=== PATIENT | female | born 1960 | race Caucasian/White ===

== ENCOUNTER → 2016-06-19 | Outpatient (CLI) | payer MEDICARE, MEDICAID ==
[~2016-06-19] MED LIST: ACET-77 PO; ALBU0.632 IH; ALBU17AE23; ALBU2.5V4; ALBU8.5H2 IH; ALPR1T; ALPR2TAB2; ALPR2TAB37 PO; ALPR2TAB6 PO; ARFO15VI3 IH; ARIP10TA17 PO; ARIP2TAB3 PO; BIOT25007 PO; BREX2TAB PO; BUDE10.2 INH; BUDE6HFA; BUDE6HFA IH; CEFD300C3 PO; CHOL10003; CHOL4PAC3 PO; CITA10TA70 PO; DCS100C PO; DESV100T PO; DIAZ-345 PO; DICL75TA2; DULO60CA6; ESCT10T; FENTANYL PATCH TD; FLC100T1 PO; GADOBUTROL 7.5 MMOL/7.5 ML (GADAVIST) VIAL IV ONE; GBPN100C PO; GFN600TCR PO; HDR4T PO; HORMONE REPLACEMENT; HYOS0.1216 PO; HYOS0.1234; IPRA3AMP IH; LEVO100T7 PO; LEVO750T6 PO; LINA290C PO; LOPE-134 PO; LVT.025T; LVT.05T; LVT.088T; LVT.1T PO; MELO7.5T46 PO; MENT71OI TOP; NAPR250T34 PO; NEFA100T PO; NITR-65 PO; OMEP40CA36 PO; ONDA8TAB12 PO; OXYB5TAB9 PO; OXYC10TA55 PO; OXYC10TA63 PO; OXYC10TA85 PO; OXYC15TA79 PO; OXYC30TA77 PO; OXYC40TA46 PO; OXYC60TA7 PO; PANT40TA; PHEN200T27 PO; PNT40TEC PO; POTA20TA8 PO; PRAZ1CAP2 PO; PREG150C PO; RIZA10TA23; RIZA10TA25 PO; RPN.25T; SULF-222; TOPI25TA2 PO; [UNRECOGNIZED DRUG - OTHER]
--- OUTSIDE RECORDS SUMMARY | 2016-06-19 10:15 | XMS REPORT | Continuity of Care Document ---
Author Author [facility] Organization [facility] Address Unknown Phone Unavailable Care Team Providers Care Macadam Raker Name Role Phone Becky Marks PCP Unavailable Source Comments Some departments are not documenting in the electronic medical record. If you do not see the information that you expected, contact Release of Information in the Health Information Management department at [phone] for further assistance in locating additional records.[facility] Active Allergies and Adverse Reactions Not on File Current Medications Not on file Active Problems Not on file Social History Tobacco Use Types Packs/Day Years Used Date Never Assessed Plan of Care Health Maintenance Due Date Last Done Comments Physical (Comprehensive) 01/29/1967 Exam Pertussis Vaccine 01/29/1971 Tetanus Vaccine 01/29/1977 Cervical Cancer Screening 01/29/1981 Breast Cancer Screening 2000 Colorectal Cancer 01/29/2010 Screening Influenza Vaccine 02/07/2016 Results from Last 3 Months Not on file
--- NOTE | 2016-06-19 14:31 | Diagnostic Imaging Report ---
PROCEDURE: MR imaging of the brain with and without contrast. TECHNIQUE: Multiplanar, multisequence MR imaging of the brain was performed with and without contrast. INDICATION: Facial numbness. CONTRAST: 7 mL of Gadavist is administered intravenously. FINDINGS: There is no diffusion restriction to suggest an acute infarct or other diffusion abnormality. The milan-white matter demonstrate minimal periventricular and deep white matter T2 hyperintense signal abnormalities without associated mass effect, significant demyelination, or postcontrast enhancement. This may relate to early findings of chronic microvascular ischemic changes. There is no hydrocephalus. The central vascular flow-voids appear preserved. The internal auditory canals and inner ear structures appear symmetric. No hydrocephalus. No extra-axial fluid collection or enhancing mass is seen. The pituitary gland is normal in size. No hypothalamic or pineal region mass. The orbits appear grossly unremarkable. There is mild mucosal thickening in the ethmoidal air cells and along the middle and inferior turbinates. IMPRESSION: No acute infarct. No enhancing mass. Dictated by: Dictated on workstation # [id number]
== END ==
LOC: RAD 10:10
DX: R20.0 Anesthesia of skin (principal)
CPT/HCPCS: 70553

== ENCOUNTER → 2016-09-18 | Outpatient (CLI) | payer MEDICARE, MEDICAID ==
[~2016-09-18] MED LIST changes: -GADOBUTROL 7.5 MMOL/7.5 ML (GADAVIST) VIAL IV ONE
--- NOTE | 2016-09-19 17:34 | Diagnostic Imaging Report ---
Bilateral screening mammogram. The current study was also evaluated with a Computer Aided Detection (CAD) system. INDICATION: Screening. No current complaints stated on the questionnaire. COMPARISON: 09/20/15. FINDINGS: The breasts are composed of heterogeneously dense parenchyma which may decrease mammographic sensitivity. Intramammary lymph node in the upper outer aspect of the left breast is again seen without change. Allowing for technique and positional differences, no suspicious change is seen. IMPRESSION: No significant change. ACR BI-RADS Category 2: Benign findings. Result letter will be mailed to the patient. Note: At least 10% of breast cancer is not imaged by mammography. Dictated by: Dictated on workstation # [id number]
== END ==
LOC: RAD 12:58
DX: Z12.31 Encounter for screening mammogram for malignant neoplasm of breast (principal)
CPT/HCPCS: 77067

== ENCOUNTER → 2016-11-26 | Outpatient (CLI) | payer MEDICARE, MEDICAID ==
--- NOTE | 2016-11-26 15:30 | Diagnostic Imaging Report ---
PROCEDURE: MRI lumbar spine. TECHNIQUE: Multiplanar, multisequence MRI of the lumbar spine was performed without contrast. INDICATION: Back pain and radiculopathy, M54.16. FINDINGS: There is susceptibility artifact related to anterior fusion hardware involving L5 and S1 vertebral bodies. There is suggestion of osseous bridging along the intervertebral space. There is satisfactory alignment at the posterior spinal line. The vertebral body heights are preserved. There is mild disc desiccation in the lower lumbar spine levels. There is marrow artifact around the hardware with otherwise no significant marrow signal abnormality in the lumbar spine. The cauda equina and conus medullaris appear grossly unremarkable. At T11/12, there is a mild left paracentral disc protrusion with no significant spinal canal or foraminal stenosis. T12/L1: No disc herniation. No spinal canal or foraminal stenosis. L1/2: There is no disc herniation, no spinal canal or foraminal stenosis. L2/3: There is no disc herniation, no spinal canal or foraminal stenosis. L3/4: No disc herniation. There is mild facet hypertrophy. No central canal, lateral recess or foraminal stenosis. L4/5: There is a mild disc bulge asymmetric to the left with an annular tear along the extraforaminal aspect on the left. There is moderate facet hypertrophy. No central canal stenosis. There is mild lateral recess stenosis seen bilaterally. The foramina demonstrate no significant stenosis. L5/S1: There is fusion changes at this level with no spinal canal or lateral recess stenosis. The foramina are patent. IMPRESSION: Post fusion changes at L5/S1 level. No significant spinal canal or foraminal stenosis at any level. Dictated by: Dictated on workstation # [id number]
--- NOTE | 2016-11-26 15:32 | Diagnostic Imaging Report ---
PROCEDURE: MR imaging cervical spine without contrast. TECHNIQUE: Multiplanar, multisequence MR imaging of the cervical spine was performed without contrast. INDICATION: Bilateral hand weakness. FINDINGS: There is straightening of the lordotic curvature. The vertebral body heights are preserved. There is anterior fusion hardware involving C7 and T1 levels. No obvious osseous fusion at the intervertebral disc at this level. The other discs demonstrate desiccation. There is mild disc height loss at C5/C6 and C6/C7 levels. There is marrow edema around endplates of C5/C6 and C6/C7 levels. There is otherwise no suspicious marrow signal abnormality. The foramen magnum and upper cervical canal is widely patent. The spinal cord has normal caliber, contour and signal. C2/C3: No spinal canal stenosis or foraminal narrowing is seen. No disc herniation. C3/C4: There is a spur disc complex associated with mild to moderate spinal canal stenosis reducing the AP dimension of the canal to 7.8 mm. There is minimal anterior flattening of the spinal cord at this level. No cord signal abnormality. The foramina demonstrate mild narrowing bilaterally, more on the left side secondary to uncovertebral and facet joint arthropathy. C4/C5: There is a disc spur complex with associated mild spinal canal stenosis reducing the AP dimension of the canal to 9 mm. No cord signal abnormality. The foramina demonstrate mild stenosis only on the right side. C5/C6: There is a disc spur complex associated with moderate spinal canal stenosis reducing the AP dimension of the canal to 7.5 mm. No cord compression or cord signal abnormality. The foramina demonstrate bilateral stenosis, moderate to severe on the right and moderate on the left. C6/C7: There is a disc spur complex reducing the AP dimension of the canal to 8.5 mm, mild to moderate stenosis. No cord compression. The foramina demonstrate mild to moderate stenosis bilaterally. C7/T1: There is prior fusion surgery performed at this level with no definite osseous bridging seen across the disc space. There are no remaining osteophytes or disc material. No spinal canal or foraminal stenosis. IMPRESSION: There is multilevel spinal canal and foraminal stenosis as described. Dictated by: Dictated on workstation # [id number]
== END ==
LOC: RAD 10:11
DX: M54.16 Radiculopathy, lumbar region (principal)
CPT/HCPCS: 72141; 72148

== ENCOUNTER → 2017-09-14 | Outpatient (CLI) | payer MEDICARE, MEDICAID ==
--- NOTE | 2017-09-14 10:58 | Diagnostic Imaging Report ---
INDICATION: Constipation and lower abdominal pain. TIME OF EXAM: 11:01 AM FINDINGS: There are surgical clips in the right abdomen. There is an IVC filter in place. Bowel gas pattern is nonobstructive. There is moderate stool in the colon, suggestive of constipation. Small bowel loops are nondilated. No free air is seen. There are postop changes in the lower lumbar spine. IMPRESSION: Constipation. No other significant abnormality is seen. Dictated by: Dictated on workstation # [id number]
== END ==
LOC: RAD 10:30
DX: K59.00 Constipation, unspecified (principal)
CPT/HCPCS: 74018

== ENCOUNTER → 2017-09-15 | Outpatient (CLI) | payer MEDICARE, MEDICAID ==
--- NOTE | 2017-09-15 16:26 | Diagnostic Imaging Report ---
INDICATION: Shortness of breath. COMPARISON: 04/17/2017 FINDINGS: Two views of the chest are obtained. Heart size and pulmonary vessels appear unremarkable. There is no pneumothorax, mediastinal widening or pleural fluid. Chronic findings of COPD are again demonstrated. Some scarring in the right upper lobe is stable. The lungs are otherwise clear. No new abnormality is seen. The osseous structures appear unremarkable. IMPRESSION: Stable chronic findings of COPD and right upper lobe scarring. No new or acute abnormality is seen when compared to the prior study. Dictated by: Dictated on workstation # [id number]
== END ==
LOC: RAD 15:44
DX: J98.4 Other disorders of lung (principal); J44.9 Chronic obstructive pulmonary disease, unspecified
CPT/HCPCS: 71046

== ENCOUNTER → 2017-09-21 | Outpatient (CLI) | payer MEDICARE, MEDICAID ==
[~2017-09-21] MED LIST changes: +ALPR2TAB2 PO; +BUDE10.2 IH; -IPRA3AMP IH; +IPRA3AMP31 IH; +LEVO88TA54 PO; +OXYC-202 PO; +PRAM1TAB2 PO; +RT-ALBUINH IH
--- NOTE | 2017-09-21 16:17 | Diagnostic Imaging Report ---
INDICATION: Routine screening. COMPARISON: 09/18/2016. TECHNIQUE: Screening digital mammography was performed bilaterally with a Computer Aided Detection (CAD) system. 3D tomographic images were obtained and reviewed. FINDINGS: Both breasts appear heterogeneously dense, limiting the sensitivity of mammography. There are benign calcifications on the left. No mass or malignant appearing microcalcifications are seen. The axillae are unremarkable. IMPRESSION: No mammographic features suspicious for malignancy are identified. ACR BI-RADS Category 2: Benign findings. Result letter will be mailed to the patient. Note: At least 10% of breast cancer is not imaged by mammography. Dictated by: Dictated on workstation # [id number]
== END ==
LOC: RAD 14:42
DX: Z12.31 Encounter for screening mammogram for malignant neoplasm of breast (principal)
CPT/HCPCS: 77067

== ENCOUNTER 2017-10-12 10:10 | Outpatient (CLI) | payer MEDICARE, MEDICAID ==
[~2017-10-12] VITALS: Ht 161.3 cm; Wt 38.1 kg
[~2017-10-12 10:10] MED LIST changes: -ALPR2TAB2 PO; -BUDE10.2 IH; -CATHETER FLUSH 10 ML SYR IV PRN; -IOHEXOL 350 MG/ML 100 ML (OMNIPAQUE 350) VIAL IV ONE; -LEVO88TA54 PO; -NS 100 ML (IVPB) BAG IV ONE; -OXYC-202 PO; -PRAM1TAB2 PO; -RT-ALBUINH IH
[2017-10-12] MEDS ORDERED: LEVO88TA54 PO (10:50)
[2017-10-12] MEDS ORDERED: RT-ALBUINH IH (10:50)
[2017-10-12] MEDS ORDERED: PRAM1TAB2 PO (12:08)
[2017-10-12] MEDS ORDERED: ALPR2TAB2 PO (12:08)
[2017-10-12] MEDS ORDERED: OXYC-202 PO (12:08)
[2017-10-12] MEDS ORDERED: BUDE10.2 IH (12:08)
== END 2017-10-12 12:09 ==
LOC: PREOP 10:10
PROVIDERS: ATTEND Surgery
DX: Z01.818 Encounter for other preprocedural examination (principal); R63.4 Abnormal weight loss; R19.5 Other fecal abnormalities; Z80.0 Family history of malignant neoplasm of digestive organs

== ENCOUNTER → 2017-10-12 | Outpatient (CLI) | payer MEDICARE, MEDICAID ==
[~2017-10-12] MED LIST changes: +CATHETER FLUSH 10 ML SYR IV PRN; +IOHEXOL 350 MG/ML 100 ML (OMNIPAQUE 350) VIAL IV ONE; +IPRA3AMP IH; -IPRA3AMP31 IH; +NS 100 ML (IVPB) BAG IV ONE
--- NOTE | 2017-10-12 15:31 | Diagnostic Imaging Report ---
PROCEDURE: CT abdomen and pelvis with and without contrast. TECHNIQUE: Precontrast acquisitions were acquired through the abdomen and pelvis. Multiple contiguous axial images were obtained through the abdomen and pelvis after the administration of intravenous contrast. DATE: October 12, 2017. COMPARISON: [facility] 09/14/2017. CT abdomen and pelvis with contrast 01/21/2016. CT abdomen and pelvis 09/14/2014. INDICATION: 57-year-old female, weight loss. Upper mid abdominal pain. FINDINGS: The visualized portions of the lung bases are clear. The heart is not enlarged. There is no identified pericardial effusion. The liver is unremarkable in size and contour. There is a low-attenuation lesion in the left lobe of the liver on axial image 17 which measures 0.9 in size with internal attenuation of 20 Hounsfield units. The lesion is unchanged in size since at least 09/14/2014 compatible with benign etiology. There is a low-attenuation lesion in the left lobe of the liver on axial image 23 measuring up to 1.6 cm in size which is also unchanged dating back to 09/14/2014 compatible with benign etiology. There is a 3 mm low-attenuation lesion in the right lobe of the liver on axial image 40 with delayed images which is too small to characterize. This is unchanged since comparison exam. There is mild intrahepatic bile duct dilation which is unchanged. The liver appears somewhat heterogeneous in attenuation. There is limited evaluation of the portal vasculature relating to timing of the contrast bolus. The patient is status post cholecystectomy. The common bile duct measures 6 mm in diameter which is unchanged. The main pancreatic duct is not abnormally dilated. Unremarkable appearance of the pancreatic parenchyma. There is a small amount of splenic tissue. The adrenal glands are unremarkable. There is a low-attenuation left renal mass on axial image 41 which measures 2.7 cm in size with internal attenuation of 10 Hounsfield units compatible with benign cysts. The urinary collecting systems are not distended. There is no identified renal or ureteral stone. The urinary bladder is collapsed and not well evaluated. There is prominent abnormal mucosal enhancement and wall thickening extending from the level of the rectum through the sigmoid colon. There is gas on axial image 61 at the level of the sigmoid colon which does not appear to be within the lumen of bowel and may relate to pneumatosis. There is no identified portal venous gas. There is no identified free intraperitoneal air at a separate location. There is no additional prominent bowel wall thickening. There is no identified well-demarcated drainable fluid collection. There is no sizable volume free pelvic fluid. There is an inferior vena cava filter. The celiac axis, superior mesenteric artery, and bilateral renal arteries appear widely patent. The inferior mesenteric artery is patent. There is no identified abnormally enlarged lymph node within the abdomen or pelvis which meets CT size criteria for adenopathy. There are chronic appearing fracture deformities of the left inferior and superior pubic rami. There is a chronic bone defect of the right iliac bone most likely relating to a bone graft harvest site. There is no identified acute bony abnormality. There is spinal hardware at L5-S1. IMPRESSION: CT ABDOMEN AND PELVIS. 1. Prominent abnormal mucosal enhancement and wall thickening extending from the level of the rectum through the length of the sigmoid colon. This is new since comparison exam. Particularly given the long segment involvement, nonspecific colitis such as infectious, inflammatory, or ischemic etiologies considered. There is no identified narrowing of the celiac axis, superior mesenteric artery, or inferior mesenteric artery. There is abnormal extraluminal gas at the level of the sigmoid colon likely relating to pneumatosis. This increases concern for intestinal ischemia. 2. Unchanged low-attenuation liver lesions compatible with benign etiology. Dr. Sher was paged at 1520 hrs. on October 12, 2017. Repeat call made at 1558 hours on October 12, 2017. Findings were relayed to the nurse practioner (Marques) taking care of the patient at 1623 hours on October 12, 2017. Dictated by: Dictated on workstation # [id number]
== END ==
LOC: RAD 13:49
DX: K63.89 Other specified diseases of intestine (principal); R63.4 Abnormal weight loss
CPT/HCPCS: 74178

== ENCOUNTER 2017-10-13 10:59 | Day surgery (SDC) | payer MEDICARE, MEDICAID ==
[~2017-10-13] VITALS: Ht 161.3 cm; Wt 38.1 kg
[~2017-10-13 10:59] MED LIST changes: +ALPR2TAB2 PO; +BUDE10.2 IH; +LEVO88TA54 PO; +OXYC-202 PO; +PRAM1TAB2 PO; +RT-ALBUINH IH
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
--- OUTSIDE RECORDS SUMMARY | 2017-10-13 11:03 | XMS REPORT | Clinical Summary ---
Author Author [facility] Organization [facility] Address Unknown Phone Unavailable Care Team Providers Care Energy Consultant Name Role Phone Matt Marks MD PCP Unavailable Source Comments Some departments are not documenting in the electronic medical record. If you do not see the information that you expected, contact Release of Information in the Health Information Management department at [phone] for further assistance in locating additional records.[facility] Allergies Not on File Current Medications Not on file Active Problems Not on file Social History Tobacco Use Types Packs/Day Years Used Date Never Assessed Sex Assigned at Date Recorded Not on file Last Filed Vital Signs Not on file Plan of Treatment Health Maintenance Due Date Last Done Comments HEPATITIS C SCREENING 1960 PHYSICAL (COMPREHENSIVE) 01/29/1967 EXAM PERTUSSIS VACCINE 01/29/1971 HIV SCREENING 01/29/1975 TETANUS VACCINE 01/29/1977 CERVICAL CANCER SCREENING 01/29/1990 BREAST CANCER SCREENING 2000 COLORECTAL CANCER 01/29/2010 SCREENING INFLUENZA VACCINE 03/08/2018 Results Not on filefrom Last 3 Months
--- OUTSIDE RECORDS SUMMARY | 2017-10-13 11:03 | XMS REPORT ---
Author Author MARKO GARCIA [facility] Address Unknown Care Team Providers Care Linotype Machinist Apprentice Name Role Phone MARKO GARCIA Unavailable PROBLEMS Type Condition ICD9-CM Code MAW21-TV Code Onset Dates Condition Status SNOMED Code Problem Unspecified hypothyroidism 244.9 Active 34093465 Problem Other chronic pain 338.29 Active 59699166 Assessment Caries K02.9 Apr, Active 04752722 Problem Anxiety state, unspecified 300.00 Active 850247800 Problem Major depressive disorder, single episode, unspecified 296.20 Active 37867321 ALLERGIES Substance Reaction Event Type Date Status Lyrica Unknown Drug Allergy Apr, Active Elmiron Unknown Drug Allergy Apr, Active Tramadol Unknown Drug Allergy Apr, Active Morphine Unknown Drug Allergy Apr, Active Tape Unknown Non Drug Allergy Apr, Active SOCIAL HISTORY No smoking Hx information available PLAN OF CARE VITAL SIGNS MEDICATIONS Medication Instructions Dosage Frequency Start Date End Date Duration Status Pristiq 100 mg 1 tablet by Oral route 1 time per day for 30 day(s) Aug, Active Alprazolam 2 mg 1 tablet by Oral route 3 times per day PRN Aug, Active oxycodone 15 mg take 1-2 tablet by Oral route 3 times per day PRN Aug, Active ProAir HFA 90 mcg/actuation inhale 2 puffs by Inhalation route 4 times per day as needed PRN shortness of breath/cough Aug, Active levothyroxine 100 mcg 1 tablet by Oral route 1 time per day Will need labs before further refills Aug, Active Ipratropium [place] 0.02 % 2.5 mL by Inhalation route 4 daily PRN wheezing or cough Aug, Active Symbicort 160-4.5 mcg/actuation inhale 2 puffs by inhalation route 2 times per day in the morning and evening Aug, Active conjugated estrogens 0.625 mg/gram 1 g by Vaginal route 3 times per week Aug, Active RESULTS No Results PROCEDURES Procedure Date Ordered Related Diagnosis Body Site EXTRAC ERUPTED TOOTH/EXPOSED ROOT Apr 10, 2016 EXTRAC ERUPTED TOOTH/EXPOSED ROOT Apr 10, 2016 EXTRAC ERUPTED TOOTH/EXPOSED ROOT Apr 10, 2016 EXTRAC ERUPTED TOOTH/EXPOSED ROOT Apr 10, 2016 SURG REMOVAL ERUPTED TOOTH Apr 10, 2016 EXTRAC ERUPTED TOOTH/EXPOSED ROOT Apr 10, 2016 IMMUNIZATIONS No Known Immunizations
--- OUTSIDE RECORDS SUMMARY | 2017-10-13 11:03 | XMS REPORT ---
Author Author MARKO GARCIA [facility] Address Unknown Care Team Providers Care Barrel Filler Head Name Role Phone MARKO GARCIA Unavailable PROBLEMS Type Condition ICD9-CM Code [id number] Code Onset Dates Condition Status SNOMED Code Problem Major depressive disorder, single episode, unspecified 296.20 Active 77890793 Problem Unspecified hypothyroidism 244.9 Active 71913067 Problem Anxiety state, unspecified 300.00 Active 054629205 Problem Other chronic pain 338.29 Active 96213683 ALLERGIES Substance Reaction Event Type Date Status Lyrica Unknown Drug Allergy Sep, Active Elmiron Unknown Drug Allergy Sep, Active Tramadol Unknown Drug Allergy Sep, Active Morphine Unknown Drug Allergy Sep, Active Tape Unknown Non Drug Allergy Sep, Active SOCIAL HISTORY Never Assessed PLAN OF CARE Activity Details Follow Up 3 Weeks Reason:Try-in VITAL SIGNS Height 63.5 in 2016-09-17 Blood pressure systolic 97 mmHg 2016-09-17 Blood pressure diastolic 66 mmHg 2016-09-17 MEDICATIONS No Known Medications RESULTS No Results PROCEDURES Procedure Date Ordered Result Body Site Dental no charge September 17, 2016 IMMUNIZATIONS No Known Immunizations MEDICAL (GENERAL) HISTORY Type Description Date Medical [...]
--- OUTSIDE RECORDS SUMMARY | 2017-10-13 11:03 | XMS REPORT ---
Author Author MARY SHEETS [facility] [place] eClinicalWorks Address Unknown Phone Unavailable Care Team Providers Care Malted Milk Masher Name Role Phone MARY SHEETS CP Unavailable Allergies, Adverse Reactions, Alerts Substance Reaction Event Type Lyrica Info Not Available Drug Allergy Elmiron Info Not Available Drug Allergy Tramadol Info Not Available Drug Allergy Morphine Info Not Available Drug Allergy Tape Info Not Available Non Drug Allergy Problems Problem Type Condition Code Onset Dates Condition Status Problem Other chronic pain 338.29 Active Problem Anxiety state, unspecified 300.00 Active Problem Unspecified hypothyroidism 244.9 Active Problem Major depressive disorder, single episode, unspecified 296.20 Active Assessment Dental examination Z01.20 Active Medications No Known Medications Procedures Procedure Coding System Code Date PANORAMIC FILM SEE ALSO CODE 68339 CPT-4 D0330 December 24, 2015 LTD ORAL EVALUATION - PROBLEM FOCUS CPT-4 D0140 December 24, 2015 Vital Signs Date/Time: December 24, 2015 Blood Pressure Diastolic 93 mmHg Blood Pressure Systolic 113 mmHg Height 63.5 in Results No Known Results Summary Purpose eClinicalWorks Submission
--- OUTSIDE RECORDS SUMMARY | 2017-10-13 11:05 | XMS REPORT ---
Author Author MARKO GARCIA [facility] Address Unknown Care Team Providers Care Senior Instrumentation Engineer Name Role Phone MARKO GARCIA Unavailable PROBLEMS Type Condition ICD9-CM Code [id number] Code Onset Dates Condition Status SNOMED Code Problem Major depressive disorder, single episode, unspecified 296.20 Active 32003401 Problem Unspecified hypothyroidism 244.9 Active 94142246 Problem Anxiety state, unspecified 300.00 Active 215331936 Problem Other chronic pain 338.29 Active 31091084 ALLERGIES Substance Reaction Event Type Date Status Lyrica Unknown Drug Allergy Aug, Active Elmiron Unknown Drug Allergy Aug, Active Tramadol Unknown Drug Allergy Aug, Active Morphine Unknown Drug Allergy Aug, Active Tape Unknown Non Drug Allergy Aug, Active SOCIAL HISTORY Never Assessed PLAN OF CARE Activity Details Follow Up 3-4 Weeks Reason:wax rims VITAL SIGNS Blood pressure systolic 85 mmHg 2016-08-06 Blood pressure diastolic 56 mmHg 2016-08-06 MEDICATIONS Medication Instructions Dosage Frequency Start Date End Date Duration Status levothyroxine 100 mcg 1 tablet by Oral route 1 time per day Will need labs before further refills Aug, Active Alprazolam 2 mg 1 tablet by Oral route 3 times per day PRN Aug, Active conjugated estrogens 0.625 mg/gram 1 g by Vaginal route 3 times per week Aug, Active ProAir HFA 90 mcg/actuation inhale 2 puffs by Inhalation route 4 times per day as needed PRN shortness of breath/cough Aug, Active Ipratropium [place] 0.02 % 2.5 mL by Inhalation route 4 daily PRN wheezing or cough Aug, Active Symbicort 160-4.5 mcg/actuation inhale 2 puffs by inhalation route 2 times per day in the morning and evening Aug, Active oxycodone 15 mg take 1-2 tablet by Oral route 3 times per day PRN Aug, Active Percocet Active Lyrica Active RESULTS No Results PROCEDURES Procedure Date Ordered Result Body Site EXTRAC ERUPTED TOOTH/EXPOSED ROOT August 06, 2016 IMMUNIZATIONS No Known Immunizations MEDICAL (GENERAL) [...]
--- OUTSIDE RECORDS SUMMARY | 2017-10-13 11:05 | XMS REPORT ---
Author Author MARKO GARCIA [facility] Address Unknown Care Team Providers Care Stone Circular Sawyer Name Role Phone MARKO GARCIA Unavailable PROBLEMS Type Condition ICD9-CM Code [id number] Code Onset Dates Condition Status SNOMED Code Problem Major depressive disorder, single episode, unspecified 296.20 Active 06529338 Problem Unspecified hypothyroidism 244.9 Active 09228237 Problem Anxiety state, unspecified 300.00 Active 424976439 Problem Other chronic pain 338.29 Active 70014802 ALLERGIES Substance Reaction Event Type Date Status Lyrica Unknown Drug Allergy Jun, Active Elmiron Unknown Drug Allergy Jun, Active Tramadol Unknown Drug Allergy Jun, Active Morphine Unknown Drug Allergy Jun, Active Tape Unknown Non Drug Allergy Jun, Active SOCIAL HISTORY No smoking Hx information available PLAN OF CARE Activity Details Follow Up 3 Weeks Reason:te/custom tray/try in VITAL SIGNS Height 63.5 in 2016-07-04 Blood pressure systolic 87 mmHg 2016-07-04 Blood pressure diastolic 51 mmHg 2016-07-04 MEDICATIONS Medication Instructions Dosage Frequency Start Date End Date Duration Status Ipratropium [place] 0.02 % 2.5 mL by Inhalation route 4 daily PRN wheezing or cough Aug, Active levothyroxine 100 mcg 1 tablet [...] needed PRN shortness of breath/cough Aug, Active Symbicort 160-4.5 mcg/actuation inhale 2 puffs by inhalation route 2 times per day in the morning and evening Aug, Active oxycodone 15 mg take 1-2 tablet by Oral route 3 times per day PRN Aug, Active RESULTS No Results PROCEDURES Procedure Date Ordered Related Diagnosis Body Site COMPLETE DENTURE - MAXILLARY Jul 04, 2016 Billing Notes on claim Jul 04, 2016 IMMUNIZATIONS No Known Immunizations
--- OUTSIDE RECORDS SUMMARY | 2017-10-13 11:05 | XMS REPORT ---
Author Author ANGELERINMARKO [facility] Address Unknown Care Team Providers Care Deputy Sheriff/Investigator Name Role Phone MARKO GARCIA Unavailable PROBLEMS Type Condition ICD9-CM Code [id number] Code Onset Dates Condition Status SNOMED Code Problem Unspecified hypothyroidism 244.9 Active 94486621 Problem Other chronic pain 338.29 Active 96234139 Assessment Dental examination Z01.20 Apr, Active 086482655 Problem Anxiety state, unspecified 300.00 Active 408636342 Problem Major depressive disorder, single episode, unspecified 296.20 Active 69997517 ALLERGIES Substance Reaction Event Type Date Status [...] per day for 30 day(s) Aug, Active oxycodone 15 mg take 1-2 tablet by Oral route 3 times per day PRN Aug, Active Alprazolam 2 mg 1 tablet by Oral route 3 times per day PRN Aug, Active levothyroxine 100 mcg 1 tablet by Oral route 1 time per day Will need labs before further refills Aug, Active ProAir HFA 90 mcg/actuation inhale 2 puffs by Inhalation route 4 times per day as needed PRN shortness of breath/cough Aug, Active Symbicort 160-4.5 mcg/actuation inhale 2 puffs by inhalation route 2 times per day in the morning and evening Aug, Active conjugated estrogens 0.625 mg/gram 1 g by Vaginal route 3 times per week Aug, Active Ipratropium [place] 0.02 % 2.5 mL by Inhalation route 4 daily PRN wheezing or cough Aug, Active RESULTS No Results PROCEDURES Procedure Date Ordered Related Diagnosis Body Site Dental no charge Apr 17, 2016 IMMUNIZATIONS No Known Immunizations
--- OUTSIDE RECORDS SUMMARY | 2017-10-13 11:05 | XMS REPORT ---
Author Author MARKO GARCIA [facility] Address Unknown Care Team Providers Care Bone Char Kiln Tender Name Role Phone MARKO GARCIA Unavailable PROBLEMS Type Condition ICD9-CM Code [id number] Code Onset Dates Condition Status SNOMED Code Problem Major depressive disorder, single episode, unspecified 296.20 Active 38273989 Problem Unspecified hypothyroidism 244.9 Active 26149766 Problem Anxiety state, unspecified 300.00 Active 938515554 Problem Other chronic pain 338.29 Active 47185866 ALLERGIES Substance Reaction Event Type Date Status Lyrica Unknown Drug Allergy October, Active Elmiron Unknown Drug Allergy October, Active Tramadol Unknown Drug Allergy October, Active Morphine Unknown Drug Allergy October, Active Tape Unknown Non Drug Allergy October, Active SOCIAL HISTORY Never Assessed PLAN OF CARE Activity Details Follow Up 3 Weeks Reason:Upper denture seat VITAL SIGNS Height 63.5 in 2016-10-21 Blood pressure systolic 109 mmHg 2016-10-21 Blood pressure diastolic 73 mmHg 2016-10-21 MEDICATIONS No Known Medications RESULTS No Results PROCEDURES Procedure Date Ordered Result Body Site Dental no charge October 21, 2016 IMMUNIZATIONS No Known Immunizations MEDICAL (GENERAL) [...]
--- OUTSIDE RECORDS SUMMARY | 2017-10-13 11:05 | XMS REPORT ---
Author Author MARKO GARCIA [facility] Address Unknown Care Team Providers Care Hoop Cutter Name Role Phone MARKO GARCIA Unavailable PROBLEMS Type Condition ICD9-CM Code [id number] Code Onset Dates Condition Status SNOMED Code Problem Major depressive disorder, single episode, unspecified 296.20 Active 75979242 Problem Unspecified hypothyroidism 244.9 Active 31113851 Problem Anxiety state, unspecified 300.00 Active 334013645 Problem Other chronic pain 338.29 Active 54646266 ALLERGIES No Known Allergies SOCIAL HISTORY No smoking Hx information available PLAN OF CARE VITAL SIGNS MEDICATIONS No Known Medications RESULTS No Results PROCEDURES Procedure Date Ordered Related Diagnosis Body Site Dental no charge Jul 11, 2016 IMMUNIZATIONS No Known Immunizations
--- OUTSIDE RECORDS SUMMARY | 2017-10-13 11:06 | XMS REPORT | Continuity of Care Document ---
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 FOR MALIGNANT NE 09/22/2017 EDGARD CROOK MD Ot Z12.31 ENCNTR SCREEN MAMMOGRAM FOR MALIGNANT NE 09/22/2017 EDGARD CROOK MD Ot Z12.31 ENCNTR SCREEN MAMMOGRAM FOR MALIGNANT NE 10/06/2017 EDGARD CROOK MD Ot K59.00 CONSTIPATION, UNSPECIFIED 10/06/2017 EDGARD CROOK MD Ot J44.9 CHRONIC OBSTRUCTIVE PULMONARY DISEASE, U 10/06/2017 EDGARD CROOK MD Ot J98.4 OTHER DISORDERS OF LUNG Procedures Code Description Performed By Performed On 96.71 CONTINUOUS INVASIVE MECHANICAL VENTILATI 07/28/2011 71298 XRAY CERVICAL SPINE, 2 OR 3 VIEWS 08/16/2014 20271 XRAY THORACIC SPINE 3 VIEWS 08/16/2014 63369 XRAY LUMBAR SPINE 2 OR 3 VIEWS 08/16/2014 PHYSICAL PHYSICAL THERAPY, VIA PERLA 09/20/2014 [id number] RESPIRATORY VENTILATION, LESS THAN 24 CO 09/22/2015 Results Test Result Range Comprehensive metabolic panel - 01/21/16 09:11 Serum or plasma sodium measurement (moles/volume) 139 mmol/L 135-145 Serum or plasma potassium measurement (moles/volume) 5.3 mmol/L 3.6-5.0 Serum or plasma chloride measurement (moles/volume) 100 mmol/L 98-107 Carbon dioxide 32 mmol/L 21-32 Serum or plasma anion gap determination (moles/volume) 7 mmol/L 5-14 Serum or plasma urea nitrogen measurement (mass/volume) 26 mg/dL 7-18 Serum or plasma creatinine measurement (mass/volume) 0.78 mg/dL 0.60-1.30 Serum or plasma urea nitrogen/creatinine mass ratio 33 NRG Serum or plasma creatinine measurement with calculation of estimated glomerular filtration rate > NRG Serum or plasma glucose measurement (mass/volume) 104 mg/dL 70-105 Serum or plasma calcium measurement (mass/volume) 9.7 mg/dL 8.5-10.1 Serum or plasma total bilirubin measurement (mass/volume) 0.2 mg/dL 0.1-1.0 Serum or plasma alkaline phosphatase measurement (enzymatic activity/volume) 101 U/L 40-136 Serum or plasma aspartate aminotransferase measurement (enzymatic activity/ volume) 25 U/L 5-34 Serum or plasma alanine aminotransferase measurement (enzymatic activity/volume ) 20 U/L 0-55 Serum or plasma protein measurement (mass/volume) 7.8 g/dL 6.4-8.2 Serum or plasma albumin measurement (mass/volume) 4.2 g/dL 3.2-4.5 Encounters ACCT No. Visit Date/Time Discharge Status Pt. Type Provider Facility Loc./Unit Complaint [id number] 12/30/2012 08:50:00 12/30/2012 15:10:00 DIS Outpatient Jaswinder Bradshaw MD [facility] on Juan J7E [id number] 01/17/2016 18:06:41 01/17/2016 18:06:41 Outpatient [id number] 09/21/2017 14:42:00 09/21/2017 23:59:59 CLS Outpatient EDGARD CROOK MD [facility] RAD SCREENING MAMMO [id number] 09/15/2017 15:44:00 09/15/2017 23:59:59 CLS Outpatient EDGARD CROOK MD [facility] RAD R06.02 [id number] 09/14/2017 10:30:00 09/14/2017 23:59:59 CLS Outpatient EDGARD CROOK MD [facility] RAD R10.32 [id number] 04/17/2017 10:30:00 04/17/2017 23:59:59 CLS Outpatient YUNG ONOFRE APRN [facility] RAD R05 [id number] 11/26/2016 10:11:00 11/26/2016 23:59:59 CLS Outpatient EDGARD CROOK MD [facility] RAD RADICULOPATHY M54.16 [id number] 09/18/2016 12:58:00 09/18/2016 23:59:59 CLS Outpatient EDGARD CROOK MD [facility] RAD SCREENING [id number] 06/19/2016 10:10:00 06/19/2016 23:59:59 CLS Outpatient EDGARD CROOK MD [facility] RAD NUMBNESS OF FACE [id number] 05/12/2016 11:37:00 05/12/2016 14:52:00 DIS Emergency SHREYA BHATTI [facility] ER HEAD NUMBNESS [id number] 01/21/2016 08:44:00 01/21/2016 23:59:59 CLS Outpatient EDGARD CROOK MD [facility] RAD ABDOMINAL PAIN [id number] 01/07/2016 07:01:00 01/07/2016 09:05:00 DIS Outpatient JOAQUIN GANNON MD [facility] SDC BLOOD IN STOOL [id number] 01/01/2016 05:39:00 01/01/2016 12:19:00 DIS Outpatient JOAQUIN GANNON MD [facility] PREOP BLOOB IN STOOL [id number] 09/22/2015 17:28:00 09/28/2015 09:50:00 DIS Inpatient BEREKET MONROY DO [facility] 4TH DEC LOC HYPOXIA RESP FAILURE,OROPHARYNGEAL DYSPHAG [id number] 09/26/2015 08:00:00 09/26/2015 08:00:00 CAN Preadmit JOAQUIN GANNON MD [facility] PREOP SCREENING [id number] 09/20/2015 14:46:00 09/20/2015 23:59:59 CLS Outpatient EDGARD CROOK MD [facility] RAD SCREENING [id number] 07/03/2015 09:42:00 07/03/2015 23:59:59 CLS Outpatient ARMAAN ESPAÑA, EDGARD Pena [facility] RAD CERVICAL SYNDROME [id number] 03/12/2015 13:17:00 03/12/2015 23:59:59 CLS Outpatient MARY HERNANDEZ MD [facility] RAD CERVICALGIA [id number] 12/15/2014 06:00:00 12/15/2014 09:45:00 DIS Outpatient ELIF DWYER MD [facility] SDC INTERSTITIAL CYSTITIS [id number] 12/12/2014 10:00:00 12/12/2014 23:59:59 CLS Outpatient ELIF DWYER MD [facility] PREOP INTERSTITIAL CYSTITIS [id number] 12/06/2014 15:12:00 12/06/2014 16:13:00 DIS Outpatient BRIA DAVID MD [facility] REHAB FREQUENT FALLS, LOW BACK PAIN [id number] 09/14/2014 14:51:00 09/14/2014 17:11:00 DIS Emergency JASWINDER TADEO MD [facility] ER DETOX/PAIN ALL OVER [id number] 09/12/2014 17:16:00 09/12/2014 23:59:59 CLS Outpatient BRIA DAVID MD [facility] RAD CHRONIC BACK PAIN [id number] 03/09/2014 10:04:00 03/09/2014 23:59:59 CLS Outpatient RITIKA SPRING MD [facility] RAD PELVIC PAIN [id number] 02/15/2013 09:35:00 02/15/2013 23:59:59 CLS Outpatient KEVAN GARCÍA APRN [facility] RAD KIDNEY STONE [id number] 02/15/2013 09:50:00 02/15/2013 12:18:00 DIS Emergency KEVAN GARCÍA APRN [facility] ER KIDNEY STONE [id number] 12/23/2012 08:58:00 12/23/2012 23:59:59 CLS Outpatient VERO FUNK [facility] RAD SCREENING [id number] 10/12/2017 14:15:00 PEN Marisol CROOK MD, EDGARD Pena [facility] RAD ABN WEIGHT LOSS [id number] 09/12/2014 17:16:00 Document Registration [id number] 09/12/2014 17:16:00 Document Registration [id number] 09/12/2014 17:16:00 Document Registration [id number] 09/12/2014 17:16:00 Document Registration [id number] 09/12/2014 17:16:00 Document Registration [id number] 09/12/2014 17:16:00 Document Registration [id number] 09/12/2014 17:16:00 Document Registration [id number] 07/28/2011 17:33:00 Document Registration [id number] 08/27/2010 10:21:00 Document Registration [id number] 01/21/2010 14:22:00 Document Registration [id number] 11/29/2009 09:44:00 Document Registration [id number] 11/01/2009 14:16:00 Document Registration [id number] 09/03/2009 08:00:00 Document Registration [id number] 08/03/2009 07:48:00 Document Registration [id number] 07/05/2009 14:16:00 Document Registration [id number] 06/22/2009 11:47:00 Document Registration [id number] 09/20/2014 13:20:00 09/20/2014 23:59:59 CLS Outpatient BRIA DAVID MD [id number] 08/16/2014 09:22:00 08/16/2014 23:59:59 CLS Outpatient BRIA DAVID MD [id number] 03/13/2015 05:20:22 ACT Document Registration
[2017-10-13 11:20] VITALS: BP 117/90
[2017-10-13] MEDS ORDERED: NS IV 500 ML 500 ML IV PRN (11:35)
[2017-10-13] MEDS ORDERED: HURRICAINE EXT TUBE (BENZOCAINE) XX PRN (11:45)
[2017-10-13] MEDS ORDERED: NS IV 500 ML 500 ML ONE (11:45)
[2017-10-13] MEDS ORDERED: fentaNYL INJECTION 100 MCG/2 ML AMP ONE (12:31)
[2017-10-13] MEDS ORDERED: MIDAZOLAM 2 MG/2 ML (VERSED) VIAL ONE ×4 (12:31)
[2017-10-13] MEDS ORDERED: HURRICAINE EXT TUBE (BENZOCAINE) ONE (12:31)
[2017-10-13] MEDS: fentaNYL INJECTION 100 MCG/2 ML AMP IVP PRN ×2 (13:58→14:15)
[2017-10-13] MEDS: MIDAZOLAM 2 MG/2 ML (VERSED) VIAL IVP PRN ×4 (14:00→14:14)
--- NOTE | 2017-10-13 14:00 | History & Physicial ---
History of Present Illness History of Present Illness Reason for visit/HPI Weight loss >20 lbs over the past several months. Additionally, has been having abdominal pain during this time. Patient denies hematochezia. Patient denies loss of appetite and states she has been eating more but continues to lose weight. Date of Admission 10/13/2017 Date Seen by Provider: October 13, 2017 Time Seen by Provider: 13:54 I consulted on this patient on 10/13/17 13:54 Attending Physician Joaquin Clifton MD Admitting Physician Brandin Sher MD Consult Allergies and Home Medications Allergies Coded Allergies: meperidine (Unverified Allergy, Severe, ANAPHYLAXIS, 09/26/15) pregabalin (Unverified Allergy, Mild, 09/03/09) morphine (Verified Allergy, Unknown, 03/09/14) pentosan polysulfate sodium (Verified Allergy, Unknown, 03/09/14) tramadol (Unverified Allergy, Unknown, RASH, 12/12/14) Uncoded Allergies: TAPE (Allergy, Unknown, 03/09/14) Home Medications Albuterol Sulfate 1 Puff Puff, 2 PUFF IH Q4H PRN for SHORTNESS OF BREATH, ( Reported) 1 PUFF = 90 MCG Alprazolam 2 Mg Tablet, 2 MG PO TID PRN for ANXIETY, (Reported) Budesonide/Formoterol Fumarate 10.2 Gm Hfa.aer.ad, 2 PUFF IH BID, (Reported) Levothyroxine Sodium 88 Mcg Tablet, 88 MCG PO DAILY, (Reported) Oxycodone HCl 60 Mg Tab.er.12h, 60 MG PO Q8H, (Reported) Oxycodone HCl/Acetaminophen 1 Each Tablet, 1 EACH PO Q6H PRN for PAIN-MILD TO MODERATE, (Reported) Pramipexole Di-HCl 1 Mg Tablet, 1 MG PO BID, (Reported) Patient Home Medication List Home Medication List Reviewed: Yes Past Ukazann-Wdwoas-Rarshq Hx Patient Social History Marrital Status: Employed/Student: unemployed Alcohol Use: Denies Use Recreational Drug Use: Yes (PRESCRIPTION DRUGS) Smoking Status: Current Everyday Smoker Type Used: Cigarettes Recent Foreign Travel: No Contact w/other who traveled: No Recent Hopitalizations: No Recent Infectious Disease Expo: No Immunizations Up To Date Tetanus Booster (TDap): More than 5yrs Date of Pneumonia Vaccine: Jun 08, 2010 Date of Influenza Vaccine: Jul 30, 2011 Seasonal Allergies Seasonal Allergies: Yes Surgeries Yes Appendectomy, Gallbladder, Hysterectomy, Orthopedic Respiratory No Cardiovascular Yes Hypotension Neurological No Reproductive System : Yes Hx Reproductive Disorders: No Sexually Transmitted Disease: No PALAEONTOLOGIST History: Hysterectomy Genitourinary No Gastrointestinal Yes Diverticulosis Musculoskeletal Arthritis, Fibromyalgia, Chronic Back Pain Endocrine Endocrine Disorders: Hypothyroidsim Cancer Cervical, Uterine Type of Treatment: Surgical Intervention Psychosocial Behavioral Health Disorders: Anxiety, Depression Family Medical History Significant Family History: No Pertinent Family Hx Constitutional: weight loss EENTM: no symptoms reported Respiratory: cough Cardiovascular: no symptoms reported Gastrointestinal: see HPI Genitourinary: no symptoms reported Musculoskeletal: no symptoms reported Skin: no symptoms reported Psychiatric/Neurological: Anxiety Physical Exam Vital Signs Vital Signs - First Documented 10/13/17 11:20 Temp 97.3 Pulse 84 Resp 24 B/P (MAP) 117/90 (99) Pulse Ox 94 O2 Delivery Room Air Capillary Refill : General Appearance: No Apparent Distress Gastrointestinal: Non Tender, Soft Rectal: Deferred Neurologic/Psychiatric: Alert, Oriented x3 Skin: Warm/Dry Assessment/Plan Assessment and Plan lady with unexplained weight loss. Previous abdominal surgeries including a splenectomy and hysterectomy. Abnormal CT scan showing thickening of the sigmoid colon. For upper endoscopy and colonoscopy Admission Diagnosis Admission Status: Other (Outpt Proc) JOAQUIN CLIFTON MD October 13, 2017 2:00 pm
--- NOTE | 2017-10-13 14:02 | Conscious Sedation/ASA ---
Conscious Sedation Pre-Proced Time Reviewed: 14:02 ASA Class: 2 Airway Mallampati Classification: ([place] appropriate class) I. II. III, IV Lungs Heart ASA score ASA 1: a normal healthy patient ASA 2: a patient with a mild systemic disease (mid diabetes, controlled hypertension, obesity ASA 3: a patient with a severe systemic disease that limits activity (angina , COPD, prior Myocardial infarction) ASA 4: a patient with an incapacitating disease that is a constant threat to life (CHF, renal failure) ASA 5: a moribund patient not expected to survive 24 hrs. (ruptured aneurysm) ASA 6: a declared brain patient whose organs are being harvested. For emergent operations, add the letter E after the classification Grade 2 Sedation Plan: Discussed options with patient/fam Note The patient is an appropriate candidate to undergo the planned procedure, sedation, and anesthesia. The patient immediately re-assessed prior to indication. JOAQUIN GANNON MD October 13, 2017 2:02 pm
[2017-10-13] MEDS ORDERED: proPOfol 200 MG/20 ML (DIPRIVAN) VIAL IV ONE (14:15)
--- NOTE | 2017-10-13 14:44 | Anesthesia-General Post-Op ---
MAC Patient Condition Mental Status/LOC: Same as Preop Cardiovascular: Satisfactory Nausea/Vomiting: Absent Respiratory: Satisfactory Pain: Controlled Complications: Absent Post Op Complications Complications None Follow Up Care/Instructions Patient Instructions None needed. Anesthesiology Discharge Order Discharge Order Patient is doing well, no complaints, stable vital signs, no apparent adverse anesthesia problems. No complications reported per nursing. MELA SAPP CRNA October 13, 2017 14:44
--- NOTE | 2017-10-13 14:48 | Anesthesia-Procedure Note ---
Procedures/Interventions Procedure Start/Stop/Diagnosis Date of Procedure: October 13, 2017 Start Time: 14:18 Referring Physician: Etienne Preprocedural Diagnosis: failed sedation Stop Time: 14:38 Additional Procedures Procedures MAC ASA2 Called to Endo for rescue sedation. Pt had received 8mg Versed, and 100mcg Fentanyl prior to anesthesia arrival. VSS throughout. Additional 100mg Propofol IV given for adequate sedation. Tolerated well. Report to NEHA Mitchell. MELA SAPP CRNA October 13, 2017 14:48
--- NOTE | 2017-10-13 14:52 | Endo Procedure Record ---
Endo Procedure Report Date of Procedure Last Colonoscopy: Yes October 13, 2017 Surgeon (s) JOAQUIN GANNON MD Post Procedure/Op Diagnosis EGD: Inflammation along the greater curvature. A short hiatal hernia Colonoscopy: Mucus discharge along the distal sigmoid colon. 1 mm polyp at the midrectum. No stricture identified Procedure Performed EGD with gastric biopsy Colonoscopy to cecum Biopsy of sigmoid mucosa Hot biopsy polypectomy of rectal polyp Description of Procedure Anesthesia Type: Conscious Sedation Specimen(s) collected/removed course of gastric greater curvature mucosa of sigmoid colon rectal polyp Description of the Procedure Indication for the procedures: This lady has suffered profound weight loss of over 50 pounds during a short period of time. Thyroid replacement has been within normal limits. She has a strong family history of colon cancer. It was felt reasonable to perform upper endoscopy with concomitant colonoscopy for further evaluation. It is notable that a CT scan performed on 12 October showed an irregularity of the rectosigmoid junction, extending up to the sigmoid colon. There was no suggestion of any apple-core lesion on the CT scan. Informed consent was obtained after reviewing the procedures in detail. Description of the procedures: EGD/biopsy: She was placed in left lateral decubitus position and her vital signs were monitored. Conscious sedation was achieved initially using a combination of Versed and fentanyl, followed by administration of propofol, under the supervision of our CODE CLERK. The flexible gastroscope was introduced down the esophagus, past the stomach, into the proximal duodenum. Findings: Esophagus: An uncomplicated hiatal hernia without any mucosal lesion. Stomach: Inflammation along the greater curvature of the body of the stomach for about 15 mm, of unknown significance. Biopsy of this area was obtained. The rest of the stomach was normal Duodenum: Normal She tolerated the procedure well and was turned around in preparation for colonoscopy. Impression: Profound weight loss Minimal inflammation along the greater curvature of the stomach. Biopsy pending. Colonoscopy/biopsy of sigmoid mucosa/polypectomy: Digital rectal examination was unremarkable. The colonoscope was then introduced into the rectum and advanced with some difficulty to the cecum. The quality of bowel preparation was adequate The scope was then withdrawn slowly and the mucosa examined in a systematic fashion. 1. Mucus discharge along the distal sigmoid colon of unknown significance. There was no evidence of active ischemic colitis, nor any malignancy. Biopsy of this segment of the sigmoid colon was obtained. It is likely that the finding may be due to resolved, superficial ischemic colitis. 2. 1 mm polyp at the mid rectum possibly hyperplastic in nature, that was excised with hot biopsy forceps She tolerated the procedures well and was taken back to the nursing area in a stable condition. Impression: Weight loss, change in bowel habits, positive family history of colon cancer. No neoplasm identified. Incidental, small rectal polyp excised. For further evaluation, an endoscopic ultrasound would be arranged expeditiously. Copy Copies To 1: EDGARD CROOK MD, XAVIER M MD October 13, 2017 2:52 pm
--- NOTE | 2017-10-13 14:53 | Discharge Inst-Simple/Standard ---
Discharge Inst-Standard Discharge Medications New, Converted or Re-Newed RX: Other Patient Instructions/Follow Up Plan of Care/Instructions/FU: My office will arrange an endoscopic ultrasound EFRAÍN and contact her Activity as Tolerated: Yes Discharge Diet: No Restrictions JOAQUIN GANNON MD October 13, 2017 2:53 pm
[2017-10-13 15:00] VITALS: BP 111/63
[2017-10-13 15:30] VITALS: BP 99/81
[2017-10-13 15:56] VITALS: BP 99/81
== END 2017-10-13 15:40 | disposition home or self-care (01) ==
LOC: ENDO 10:59
PROVIDERS: ATTEND Surgery
DX: R63.4 Abnormal weight loss (principal); K62.1 Rectal polyp; K29.70 Gastritis, unspecified, without bleeding; K44.9 Diaphragmatic hernia without obstruction or gangrene; Z80.0 Family history of malignant neoplasm of digestive organs; F17.210 Nicotine dependence, cigarettes, uncomplicated; Z79.899 Other long term (current) drug therapy
CPT/HCPCS: 88305

== ENCOUNTER → 2017-10-29 | Outpatient (CLI) | payer MEDICARE, MEDICAID ==
--- NOTE | 2017-10-29 14:28 | Diagnostic Imaging Report ---
PROCEDURE: CT chest without contrast. TECHNIQUE: Multiple contiguous axial images were obtained through the chest without the use of intravenous contrast. INDICATION: Cough and weight loss. COMPARISON: No prior CT chest is available for comparison. FINDINGS: No axillary lymphadenopathy is detected. Hilar and mediastinal evaluation is limited without intravenous contrast but no gross abnormality is seen. No pericardial or pleural fluid is identified. Parenchymal evaluation does show significant centrilobular emphysematous changes throughout both lungs. There is an area of the spiculated increased density in the subpleural aspect of the right upper lobe laterally, image 16 measuring approximately 17 mm x 11 mm. No other suspicious parenchymal opacities are seen. The upper abdomen is unremarkable apart from a low density lesion in the upper pole left kidney, likely cyst. There also appears to be a cyst in the liver. IMPRESSION: 1. Spiculated subpleural density right upper lobe. A small neoplasm cannot be entirely excluded. Further evaluation with PET scan would be useful. 2. Severe emphysematous changes, as described. Dictated by: Dictated on workstation # [id number]
== END ==
LOC: RAD 13:23
PROVIDERS: ATTEND Surgery
DX: J43.9 Emphysema, unspecified (principal)
CPT/HCPCS: 71250

== ENCOUNTER → 2017-11-03 | Outpatient (CLI) | payer MEDICARE, MEDICAID ==
--- NOTE | 2017-11-03 15:57 | Diagnostic Imaging Report ---
INDICATION: Right lung mass noted on recent CT. TECHNIQUE: Serum blood glucose level at the time of injection is 94 mg/dL. Patient was administered 12.9 mCi of F-18 FDG intravenously in the right antecubital location and PET imaging was performed from the top of the skull through the mid thighs. Noncontrast CT was also performed for attenuation correction and anatomic correlation. COMPARISON: Correlation is made with recent noncontrast CT of the chest from 10/29/2017. No prior PET/CT is available for comparison. FINDINGS: There is symmetric activity throughout the brain. Soft tissues of the neck are unremarkable. There is a focus of hypermetabolism in the subpleural right upper lobe correlating with the chest CT abnormality. This demonstrates SUV max of 6.2 and correlates to the 13 mm subpleural density on CT. No definite mediastinal or hilar hypermetabolism is seen. No other pulmonary parenchymal abnormalities are identified. Imaging through the abdomen and pelvis demonstrates physiologic activity throughout the liver and spleen as well as genitourinary and gastrointestinal tracts. No abnormal hypermetabolism is seen. IMPRESSION: Hypermetabolic lesion in the right upper lobe correlating with the CT abnormality. Features are concerning for small lung malignancy. No mediastinal or hilar hypermetabolism is seen to suggest metastatic disease. Dictated by: Dictated on workstation # [id number]
== END ==
LOC: RAD 09:45
PROVIDERS: ATTEND Surgery
DX: R91.1 Solitary pulmonary nodule (principal)

== ENCOUNTER 2017-11-06 06:56 | Outpatient (CLI) | payer MEDICARE, MEDICAID ==
[2017-11-06] VITALS (16 sets, daily range): BP systolic 83–115; BP diastolic 60–78
[~2017-11-06] VITALS: Ht 161.3 cm; Wt 38.1 kg
[2017-11-06] MEDS ORDERED: NS IV 1000 ML 1,000 ML IV STA (07:26)
[2017-11-06] MEDS ORDERED: MIDAZOLAM 2 MG/2 ML (VERSED) VIAL IVP PRN (07:30)
[2017-11-06] MEDS ORDERED: fentaNYL INJECTION 100 MCG/2 ML AMP IVP PRN (07:30)
[2017-11-06 07:32] LABS: HEMOGLOBIN 17.2 G/DL (11.5-16.0); MEAN PLATELET VOLUME 9.6 FL (7.4-10.4); RED BLOOD COUNT 5.18 10^6/uL (4.35-5.85); RED CELL DISTRIBUTION WIDTH 12.9 % (10.0-14.5); WHITE BLOOD COUNT 7.9 10^3/uL (4.3-11.0)
[2017-11-06] MEDS ORDERED: LIDOCAINE 1% INJ 20 ML 20 ML VIAL ONE (07:34)
[2017-11-06 07:43] LABS: PROTHROMBIN TIME PATIENT 12.8 SEC (12.2-14.7)
[2017-11-06] MEDS ORDERED: LIDOCAINE 1% INJ 20 ML 20 ML VIAL INJ ONE (07:45)
[2017-11-06] MEDS ORDERED: HYDROcodone/APAP 5 MG/325 MG (LORTAB) TAB PO PRN (09:15)
--- NOTE | 2017-11-06 09:40 | Pre-Op Note & Conscious Sedat ---
Pre-Operative Progress Note H&P Reviewed The H&P was reviewed, patient examined and no changes noted. Date H&P Reviewed: Nov 06, 2017 Time H&P Reviewed: 08:00 Pre-Op Diagnosis: Lung mass Conscious Sedation Pre-Proced Time Reviewed: 08:00 ASA Class: 2 Airway Mallampati Classification: ([place] appropriate class) I. II. III, IV Lungs Heart ASA score ASA 1: a normal healthy patient ASA 2: a patient with a mild systemic disease (mid diabetes, controlled hypertension, obesity ASA 3: a patient with a severe systemic disease that limits activity (angina , COPD, prior Myocardial infarction) ASA 4: a patient with an incapacitating disease that is a constant threat to life (CHF, renal failure) ASA 5: a moribund patient not expected to survive 24 hrs. (ruptured aneurysm) ASA 6: a declared brain patient whose organs are being harvested. For emergent operations, add the letter E after the classification Grade 2 Sedation Plan: Analgesia, Amnesia, Plan communicated to team members, Discussed options with patient/fam, Discussed risks with patient/fam Note The patient is an appropriate candidate to undergo the planned procedure, sedation, and anesthesia. The patient immediately re-assessed prior to indication. MARIANO FORDE MD Nov 06, 2017 09:40
--- NOTE | 2017-11-06 10:24 | Diagnostic Imaging Report ---
Indication: Status post right lung biopsy. Time of exam: 9:58 AM Correlation is made with chest radiograph from 09/15/2017. There is a trace right apical pneumothorax, status post right upper lobe biopsy. There is some airspace infiltrate in the right upper lobe. Left lung is clear. The lungs are hyperinflated consistent with COPD. Impression: Tiny right apical pneumothorax, status post right lung biopsy. Dictated by: Dictated on workstation # [id number]
--- NOTE | 2017-11-06 10:45 | Diagnostic Imaging Report ---
Indication: Right upper lobe mass. Patient presents for CT-guided biopsy. After informed written consent was obtained from the patient, patient brought to the CT suite and placed on table in the supine position. Axial imaging through the chest was performed to evaluate appropriate entry site. Right chest was then prepped and draped in usual sterile fashion. Small amount of 1% lidocaine was utilized for local anesthesia. Procedure was performed utilizing conscious sedation with constant patient monitoring in radiology nursing. The patient was administered 1 mg of Versed and 75 mcg of [place] intravenously. Total sedation time approximately 15 minutes. A 20-gauge coaxial needle was advanced and placed with its tip projected adjacent to the area of irregularity in the subpleural right upper lobe. The procedure was difficult due to spiculated density of being located immediately behind a rib. Several core samples were obtained. Patient did develop a very small pneumothorax after the first pass. A total of approximately 5 core biopsies were obtained. Blood patch was administered during the removal of the guide needle. Hemostasis was obtained using manual compression. Followup imaging does show airspace infiltrate within the right upper lobe consistent with the blood patch and minimal hemorrhage. There is a tiny right-sided pneumothorax. Patient will obtain a chest x-ray approximately one hour post procedure to follow up the pneumothorax. Cores were sent to the lab for testing. Pathology results are currently pending. Lung maki do demonstrate significant centrilobular emphysematous changes. Impression: CT-guided biopsy of the spiculated density in the right upper lobe, as described. Conscious sedation was utilized. Pathology results are currently pending. Dictated by: Dictated on workstation # [id number]
== END 2017-11-06 13:25 | disposition home or self-care (01) ==
LOC: SDC 06:56 → SURG 09:08 → SDC 13:25
PROVIDERS: ATTEND Surgery
DX: C34.91 Malignant neoplasm of unspecified part of right bronchus or lung (principal)
CPT/HCPCS: 36415; 71045; 77012; 85027; 85610; 85730; 88305; 88344; 99156; 99157

== ENCOUNTER → 2017-12-10 | Outpatient (CLI) | payer MEDICARE, MEDICAID ==
[~2017-12-10] MED LIST changes: -IPRA3AMP IH; +IPRA3AMP31 IH
--- NOTE | 2017-12-10 13:26 | Diagnostic Imaging Report ---
INDICATION: Left scapular pain. AP and lateral views of the left scapula are obtained. FINDINGS: There are mild degenerative findings at the acromioclavicular joint. No acute fracture or dislocation is identified. No abnormal lytic or sclerotic focus is seen, and there is no radiopaque foreign body. IMPRESSION: No acute abnormality. Dictated by: Dictated on workstation # [id number]
--- NOTE | 2017-12-10 14:57 | Diagnostic Imaging Report ---
INDICATION: Legs have been giving out on patient. Neck pain.. TECHNIQUE: AP, lateral and odontoid views cervical spine.. CORRELATION STUDY: 09/12/2014 FINDINGS: Postop change from cervical decompression and fusion C7-T1. This area is somewhat limiting evaluation on the lateral projection but appears to be likely anatomic in alignment. There is mild retrolisthesis of C3 on C4, C4 on C5, C5 on C6. Diffuse disc space narrowing at essentially all levels of cervical spine. Thyroid most pronounced at the C5-C6 and C6-C7 levels. Mild endplate osteophyte formation is noted, particularly at the C5 and C6 level, may result in some osseous encroachment on the foramina and/or spinal canal. Odontoid largely obscured but appears generally unremarkable. Prevertebral soft tissues are unremarkable. IMPRESSION: 1. Stable appearance of anterior cervical decompression fusion C7-T1 level. May be progressive degenerative changes of the nonfused segments compared to prior imaging. No acute bony abnormality. Dictated by: Dictated on workstation # [id number]
== END ==
LOC: RAD 12:35
DX: M54.2 Cervicalgia (principal); M89.8X1 Other specified disorders of bone, shoulder; Z98.1 Arthrodesis status
CPT/HCPCS: 72040; 73010

== ENCOUNTER → 2017-12-23 | Outpatient (CLI) | payer MEDICARE, MEDICAID ==
--- NOTE | 2017-12-23 15:17 | Diagnostic Imaging Report ---
INDICATION: Maxillary sinus disease. TIME OF EXAM: 02:40 p.m. Multiple views of the paranasal sinuses were obtained. The maxillary sinuses are clear. No mucosal thickening or air-fluid levels are seen. Ethmoid and sphenoid sinuses are clear. Frontal sinus appears to be hypoplastic. IMPRESSION: No evidence of sinusitis. Dictated by: Dictated on workstation # [id number]
== END ==
LOC: RAD 14:04
DX: J32.0 Chronic maxillary sinusitis (principal)
CPT/HCPCS: 70220

== ENCOUNTER 2018-02-23 13:23 | Outpatient (RCR) | payer MEDICARE, MEDICAID ==
[~2018-02-23 13:23] MED LIST changes: -OXYC-202 PO; +OXYC1TAB12 PO
== END 2018-04-22 10:35 | disposition home or self-care (01) ==
LOC: ONC 13:23
PROVIDERS: ATTEND Internal Medicine Hematology & Oncology
DX: C34.11 Malignant neoplasm of upper lobe, right bronchus or lung (principal); J44.9 Chronic obstructive pulmonary disease, unspecified; F17.210 Nicotine dependence, cigarettes, uncomplicated; Z99.81 Dependence on supplemental oxygen
CPT/HCPCS: 99213

== ENCOUNTER 2018-07-01 14:18 | Outpatient (RCR) | payer MEDICARE, MEDICAID ==
[2018-04-22 14:09] LABS: BASOPHILS % (AUTO) 0 % (0-10); EOSINOPHILS # (AUTO) 0.2 10^3/uL (0.0-0.3); EOSINOPHILS % (AUTO) 2 % (0-10); HEMATOCRIT 42 % (35-52); HEMOGLOBIN 13.6 G/DL (11.5-16.0); LYMPHOCYTES # (AUTO) 3.5 X 10^3 (1.0-4.0); LYMPHOCYTES % (AUTO) 47 % (12-44); MEAN CORPUSCULAR HEMOGLOBIN 33 PG (25-34); MEAN CORPUSCULAR HGB CONC 33 G/DL (32-36); MEAN CORPUSCULAR VOLUME 102 FL (80-99); MEAN PLATELET VOLUME 8.9 FL (7.4-10.4); MONOCYTES # (AUTO) 0.6 X 10^3 (0.0-1.0); MONOCYTES % (AUTO) 8 % (0-12); NEUTROPHILS # (AUTO) 3.1 X 10^3 (1.8-7.8); NEUTROPHILS % (AUTO) 42 % (42-75); PLATELET COUNT 266 10^3/uL (130-400); RED CELL DISTRIBUTION WIDTH 13.1 % (10.0-14.5); WHITE BLOOD COUNT 7.4 10^3/uL (4.3-11.0)
[2018-04-22 14:30] LABS: ALANINE AMINOTRANSFERASE 12 U/L (0-55); ALBUMIN 4.3 GM/DL (3.2-4.5); ALKALINE PHOSPHATASE 73 U/L (40-136); BILIRUBIN,TOTAL 0.3 MG/DL (0.1-1.0); BUN/CREATININE RATIO 34; CALCIUM 9.2 MG/DL (8.5-10.1); CARBON DIOXIDE 30 MMOL/L (21-32); CHLORIDE 104 MMOL/L (98-107); CREATININE SERUM 0.71 MG/DL (0.60-1.30); GFR ESTIMATED > 60; GLUCOSE 108 MG/DL (70-105); POTASSIUM 3.3 MMOL/L (3.6-5.0); SODIUM 142 MMOL/L (135-145); TOTAL PROTEIN 7.1 GM/DL (6.4-8.2)
--- NOTE | 2018-04-22 15:41 | Diagnostic Imaging Report ---
INDICATION: Lung cancer. COMPARISON: September 15, 2017. FINDINGS: Stable hyperaerated lung volume. Right upper lobe subpleural nodule has not substantially changed by radiography. No airspace consolidations. No pleural effusion or pneumothorax. Normal heart size. IMPRESSION: COPD with unchanged right upper lobe subpleural nodule by radiography. Dictated by: Dictated on workstation # [id number]
[2018-05-28 11:27] LABS: BASOPHILS % (AUTO) 0 % (0-10); EOSINOPHILS # (AUTO) 0.1 10^3/uL (0.0-0.3); EOSINOPHILS % (AUTO) 1 % (0-10); HEMATOCRIT 46 % (35-52); HEMOGLOBIN 14.6 G/DL (11.5-16.0); LYMPHOCYTES # (AUTO) 2.5 X 10^3 (1.0-4.0); LYMPHOCYTES % (AUTO) 44 % (12-44); MEAN CORPUSCULAR HEMOGLOBIN 33 PG (25-34); MEAN CORPUSCULAR HGB CONC 32 G/DL (32-36); MEAN CORPUSCULAR VOLUME 106 FL (80-99); MEAN PLATELET VOLUME 9.2 FL (7.4-10.4); MONOCYTES # (AUTO) 0.3 X 10^3 (0.0-1.0); MONOCYTES % (AUTO) 6 % (0-12); NEUTROPHILS # (AUTO) 2.9 X 10^3 (1.8-7.8); NEUTROPHILS % (AUTO) 49 % (42-75); PLATELET COUNT 273 10^3/uL (130-400); RED CELL DISTRIBUTION WIDTH 13.4 % (10.0-14.5); WHITE BLOOD COUNT 5.8 10^3/uL (4.3-11.0)
[2018-05-28 11:57] LABS: BUN/CREATININE RATIO 38; CARBON DIOXIDE 25 MMOL/L (21-32); CHLORIDE 102 MMOL/L (98-107); CREATININE SERUM 0.72 MG/DL (0.60-1.30); POTASSIUM 4.6 MMOL/L (3.6-5.0); SODIUM 135 MMOL/L (135-145)
[2018-05-28 11:58] LABS: ALANINE AMINOTRANSFERASE 11 U/L (0-55); ALBUMIN 4.2 GM/DL (3.2-4.5); ALKALINE PHOSPHATASE 77 U/L (40-136); BILIRUBIN,TOTAL 0.3 MG/DL (0.1-1.0); CALCIUM 9.3 MG/DL (8.5-10.1); GFR ESTIMATED > 60; GLUCOSE 107 MG/DL (70-105); TOTAL PROTEIN 7.3 GM/DL (6.4-8.2)
[2018-06-28 11:18] LABS: BASOPHILS # (AUTO) 0.1 10^3/uL (0.0-0.1); BASOPHILS % (AUTO) 1 % (0-10); EOSINOPHILS # (AUTO) 0.1 10^3/uL (0.0-0.3); EOSINOPHILS % (AUTO) 2 % (0-10); HEMATOCRIT 49 % (35-52); HEMOGLOBIN 15.6 G/DL (11.5-16.0); LYMPHOCYTES % (AUTO) 58 % (12-44); MEAN CORPUSCULAR HEMOGLOBIN 33 PG (25-34); MEAN CORPUSCULAR HGB CONC 32 G/DL (32-36); MEAN CORPUSCULAR VOLUME 102 FL (80-99); MEAN PLATELET VOLUME 9.2 FL (7.4-10.4); MONOCYTES # (AUTO) 0.6 X 10^3 (0.0-1.0); MONOCYTES % (AUTO) 9 % (0-12); NEUTROPHILS # (AUTO) 2.1 X 10^3 (1.8-7.8); NEUTROPHILS % (AUTO) 31 % (42-75); PLATELET COUNT 271 10^3/uL (130-400); WHITE BLOOD COUNT 6.9 10^3/uL (4.3-11.0)
[2018-06-28 11:36] LABS: ALANINE AMINOTRANSFERASE 7 U/L (0-55); ALBUMIN 4.1 GM/DL (3.2-4.5); ALKALINE PHOSPHATASE 79 U/L (40-136); BILIRUBIN,TOTAL 0.3 MG/DL (0.1-1.0); BUN/CREATININE RATIO 40; CALCIUM 9.5 MG/DL (8.5-10.1); CARBON DIOXIDE 29 MMOL/L (21-32); CHLORIDE 102 MMOL/L (98-107); CREATININE SERUM 0.75 MG/DL (0.60-1.30); GFR ESTIMATED > 60; GLUCOSE 122 MG/DL (70-105); POTASSIUM 3.9 MMOL/L (3.6-5.0); SODIUM 137 MMOL/L (135-145); TOTAL PROTEIN 7.6 GM/DL (6.4-8.2)
== END 2018-07-21 | disposition home or self-care (01) ==
LOC: ONC 14:18
PROVIDERS: ATTEND Internal Medicine Hematology & Oncology
DX: C34.11 Malignant neoplasm of upper lobe, right bronchus or lung (principal); J44.9 Chronic obstructive pulmonary disease, unspecified; F17.210 Nicotine dependence, cigarettes, uncomplicated; Z99.81 Dependence on supplemental oxygen
CPT/HCPCS: 36415; 71046; 80053; 85025; 99213

== ENCOUNTER → 2018-09-27 | Outpatient (CLI) | payer MEDICARE, MEDICAID ==
[~2018-09-27] MED LIST changes: +HOLD METFORMIN - RECEIVED CONTRAST 20 ML VIAL IV SCH; +IOHEXOL 350 MG/ML 100 ML (OMNIPAQUE 350) VIAL IV ONE
--- NOTE | 2018-09-27 15:03 | Diagnostic Imaging Report ---
PROCEDURE: CT chest with contrast only. TECHNIQUE: Multiple contiguous axial images were obtained through the chest after administration of intravenous contrast. Auto Exposure Controls were utilized during the CT exam to meet ALARA standards for radiation dose reduction. INDICATION: Lung cancer. COMPARISON: Correlation is made with prior CT chest from 06/28/2018. FINDINGS: No axillary lymphadenopathy is detected. No definite mediastinal or hilar lymphadenopathy is detected. No pericardial or pleural fluid is detected. Parenchymal evaluation again shows centrilobular emphysematous changes. Previously noted spiculated subpleural density in the lateral portion of the right upper lobe is again noted. This does appear to be slightly larger in size. This measures 2.3 cm transverse x 1.6 cm AP compared with 2.2 cm x 1.4 cm. No new parenchymal mass is seen. Upper abdomen again demonstrates cystic lesions in the liver and left kidney. IMPRESSION: Very slight increase in size of subpleural spiculated density in the right upper lobe when compared with prior CT chest from 06/28/2018. No thoracic lymphadenopathy is detected. Dictated by: Dictated on workstation # [id number]
== END ==
LOC: RAD 13:40
PROVIDERS: ATTEND Internal Medicine Hematology & Oncology
DX: C34.11 Malignant neoplasm of upper lobe, right bronchus or lung (principal)
CPT/HCPCS: 71260

== ENCOUNTER 2018-10-05 13:24 | Outpatient (RCR) | payer MEDICARE, MEDICAID ==
[2018-09-27 13:28] LABS: BASOPHILS % (AUTO) 0 % (0-10); EOSINOPHILS # (AUTO) 0.1 10^3/uL (0.0-0.3); EOSINOPHILS % (AUTO) 1 % (0-10); HEMATOCRIT 43 % (35-52); HEMOGLOBIN 14.3 G/DL (11.5-16.0); LYMPHOCYTES # (AUTO) 4.3 X 10^3 (1.0-4.0); LYMPHOCYTES % (AUTO) 38 % (12-44); MEAN CORPUSCULAR HEMOGLOBIN 34 PG (25-34); MEAN CORPUSCULAR HGB CONC 33 G/DL (32-36); MEAN CORPUSCULAR VOLUME 102 FL (80-99); MEAN PLATELET VOLUME 9.1 FL (7.4-10.4); MONOCYTES # (AUTO) 0.9 X 10^3 (0.0-1.0); MONOCYTES % (AUTO) 7 % (0-12); NEUTROPHILS # (AUTO) 6.1 X 10^3 (1.8-7.8); NEUTROPHILS % (AUTO) 53 % (42-75); PLATELET COUNT 331 10^3/uL (130-400); RED CELL DISTRIBUTION WIDTH 13.6 % (10.0-14.5); WHITE BLOOD COUNT 11.5 10^3/uL (4.3-11.0)
[2018-09-27 13:53] LABS: ALANINE AMINOTRANSFERASE 10 U/L (0-55); ALBUMIN 3.8 GM/DL (3.2-4.5); ALKALINE PHOSPHATASE 93 U/L (40-136); BILIRUBIN,TOTAL 0.2 MG/DL (0.1-1.0); BUN/CREATININE RATIO 31; CALCIUM 9.4 MG/DL (8.5-10.1); CARBON DIOXIDE 32 MMOL/L (21-32); CHLORIDE 104 MMOL/L (98-107); GFR ESTIMATED > 60; GLUCOSE 121 MG/DL (70-105); SODIUM 143 MMOL/L (135-145); TOTAL PROTEIN 6.9 GM/DL (6.4-8.2)
[~2018-10-05 13:24] MED LIST changes: -HOLD METFORMIN - RECEIVED CONTRAST 20 ML VIAL IV SCH; -IOHEXOL 350 MG/ML 100 ML (OMNIPAQUE 350) VIAL IV ONE
== END 2018-12-26 | disposition home or self-care (01) ==
LOC: ONC 13:24
PROVIDERS: ATTEND Internal Medicine Hematology & Oncology
DX: C34.11 Malignant neoplasm of upper lobe, right bronchus or lung (principal); J44.9 Chronic obstructive pulmonary disease, unspecified; F17.210 Nicotine dependence, cigarettes, uncomplicated; Z99.81 Dependence on supplemental oxygen
CPT/HCPCS: 36415; 80053; 85025; 99213

== ENCOUNTER → 2019-01-04 | Outpatient (CLI) | payer MEDICARE, MEDICAID ==
--- NOTE | 2019-01-04 12:32 | Diagnostic Imaging Report ---
INDICATION: Lung cancer, restaging. TECHNIQUE: Serum blood glucose level at the time of injection was 72 mg/dL. The patient was administered 16.4 mCi F-18 FDG intravenously in the right antecubital location and PET imaging was performed from the top of the skull to the mid thighs. Noncontrast CT was also performed for attenuation correction and anatomic correlation. COMPARISON: Correlation is made with prior PET/CT study from 11/03/2017 as well as most recent conventional CT chest from 09/27/2018. FINDINGS: There is symmetric activity throughout the brain. Physiologic activity within the soft tissues of the neck is identified. Previously noted spiculated subpleural density in the right upper lobe appears similar in size to most recent CT from September. There continues to be some hypermetabolism within the lesion however overall degree of hypermetabolism appears to be decreased when compared with prior PET/CT study. SUV max is approximately 3.7 compared with 6.2. No new pulmonary parenchymal areas of hypermetabolism are identified. There is no abnormal hypermetabolism identified within the mediastinum or nhan. Imaging through the abdomen and pelvis demonstrates physiologic activity within the GI and tracts. No suspicious hypermetabolism is identified. IMPRESSION: Spiculated subpleural density in right upper lobe this is similar in size to prior CT. Overall degree of hypermetabolism has decreased since prior PET/CT from 11/03/2017. No new focus of hypermetabolism is seen. No hilar or mediastinal hypermetabolism is detected. Dictated by: Dictated on workstation # [id number]
== END ==
LOC: RAD 09:00
PROVIDERS: ATTEND Internal Medicine Hematology & Oncology
DX: C34.11 Malignant neoplasm of upper lobe, right bronchus or lung (principal); J98.4 Other disorders of lung

== ENCOUNTER 2019-01-14 09:23 | Outpatient (RCR) | payer MEDICARE, MEDICAID ==
[2018-12-28 09:43] LABS: BASOPHILS % (AUTO) 0 % (0-10); EOSINOPHILS # (AUTO) 0.2 10^3/uL (0.0-0.3); EOSINOPHILS % (AUTO) 2 % (0-10); HEMATOCRIT 45 % (35-52); HEMOGLOBIN 14.3 G/DL (11.5-16.0); LYMPHOCYTES % (AUTO) 55 % (12-44); MEAN CORPUSCULAR HEMOGLOBIN 33 PG (25-34); MEAN CORPUSCULAR HGB CONC 32 G/DL (32-36); MEAN CORPUSCULAR VOLUME 103 FL (80-99); MEAN PLATELET VOLUME 8.7 FL (7.4-10.4); MONOCYTES # (AUTO) 0.6 X 10^3 (0.0-1.0); MONOCYTES % (AUTO) 6 % (0-12); NEUTROPHILS # (AUTO) 3.3 X 10^3 (1.8-7.8); NEUTROPHILS % (AUTO) 37 % (42-75); PLATELET COUNT 312 10^3/uL (130-400); WHITE BLOOD COUNT 9.1 10^3/uL (4.3-11.0)
[2018-12-28 10:01] LABS: ALANINE AMINOTRANSFERASE 7 U/L (0-55); ALKALINE PHOSPHATASE 85 U/L (40-136); BILIRUBIN,TOTAL 0.3 MG/DL (0.1-1.0); BUN/CREATININE RATIO 28; CALCIUM 9.1 MG/DL (8.5-10.1); CARBON DIOXIDE 29 MMOL/L (21-32); CHLORIDE 101 MMOL/L (98-107); CREATININE SERUM 0.83 MG/DL (0.60-1.30); GFR ESTIMATED > 60; GLUCOSE 93 MG/DL (70-105); POTASSIUM 3.8 MMOL/L (3.6-5.0); SODIUM 138 MMOL/L (135-145)
[~2019-01-14 09:23] MED LIST changes: -ACET-77 PO; +ACET-78 PO; +OMEP40CA27 PO; -OMEP40CA36 PO; +OXYB5TAB13 PO; -OXYB5TAB9 PO; -RIZA10TA25 PO; +RIZA10TA94 PO
== END 2019-03-28 | disposition home or self-care (01) ==
LOC: ONC 09:23
PROVIDERS: ATTEND Internal Medicine Hematology & Oncology
DX: C34.11 Malignant neoplasm of upper lobe, right bronchus or lung (principal); J44.9 Chronic obstructive pulmonary disease, unspecified; F17.210 Nicotine dependence, cigarettes, uncomplicated; Z99.81 Dependence on supplemental oxygen
CPT/HCPCS: 36415; 80053; 85025; 99213

== ENCOUNTER 2019-04-14 12:21 | Outpatient (RCR) | payer MEDICARE, MEDICAID ==
[2019-04-14 13:15] LABS: BASOPHILS % (AUTO) 0 % (0-10); EOSINOPHILS # (AUTO) 0.2 10^3/uL (0.0-0.3); EOSINOPHILS % (AUTO) 2 % (0-10); HEMATOCRIT 48 % (35-52); HEMOGLOBIN 14.8 G/DL (11.5-16.0); LYMPHOCYTES # (AUTO) 3.3 X 10^3 (1.0-4.0); LYMPHOCYTES % (AUTO) 41 % (12-44); MEAN CORPUSCULAR HEMOGLOBIN 32 PG (25-34); MEAN CORPUSCULAR HGB CONC 31 G/DL (32-36); MEAN CORPUSCULAR VOLUME 104 FL (80-99); MEAN PLATELET VOLUME 8.6 FL (7.4-10.4); MONOCYTES # (AUTO) 0.5 X 10^3 (0.0-1.0); MONOCYTES % (AUTO) 6 % (0-12); NEUTROPHILS # (AUTO) 4.1 X 10^3 (1.8-7.8); NEUTROPHILS % (AUTO) 51 % (42-75); PLATELET COUNT 269 10^3/uL (130-400); RED CELL DISTRIBUTION WIDTH 13.2 % (10.0-14.5)
[2019-04-14 13:40] LABS: ALANINE AMINOTRANSFERASE 14 U/L (0-55); ALBUMIN 4.2 GM/DL (3.2-4.5); ALKALINE PHOSPHATASE 98 U/L (40-136); BILIRUBIN,TOTAL 0.2 MG/DL (0.1-1.0); BUN/CREATININE RATIO 26; CALCIUM 9.1 MG/DL (8.5-10.1); CARBON DIOXIDE 28 MMOL/L (21-32); CHLORIDE 104 MMOL/L (98-107); CREATININE SERUM 0.77 MG/DL (0.60-1.30); GFR ESTIMATED > 60; GLUCOSE 99 MG/DL (70-105); POTASSIUM 4.1 MMOL/L (3.6-5.0); SODIUM 141 MMOL/L (135-145); TOTAL PROTEIN 7.3 GM/DL (6.4-8.2)
== END 2019-07-13 | disposition home or self-care (01) ==
LOC: ONC 12:21
PROVIDERS: ATTEND Internal Medicine Hematology & Oncology
DX: C34.11 Malignant neoplasm of upper lobe, right bronchus or lung (principal); J44.9 Chronic obstructive pulmonary disease, unspecified; F17.210 Nicotine dependence, cigarettes, uncomplicated; Z99.81 Dependence on supplemental oxygen; Z92.3 Personal history of irradiation
CPT/HCPCS: 36415; 80053; 85025; 99213

== ENCOUNTER → 2019-04-25 | Outpatient (CLI) | payer MEDICARE, MEDICAID ==
[~2019-04-25] MED LIST changes: +ACET-77 PO; -ACET-78 PO; +BARIUM for suspension 96% w/w (Vanilla Silq Medium Density) PO ONE; +BARIUM for suspension 98% w/w (Vanilla Silq High Density) PO ONE; -OMEP40CA27 PO; +OMEP40CA36 PO; -OXYB5TAB13 PO; +OXYB5TAB9 PO; +RIZA10TA25 PO; -RIZA10TA94 PO
--- NOTE | 2019-04-25 13:28 | Diagnostic Imaging Report ---
Indication: Abdominal cramping. Patient ingested effervescent crystals as well as thin and thick barium and imaging of the esophagus, stomach and proximal small bowel was performed. 1 minute 16 seconds of fluoroscopic time was utilized. Preliminary radiograph of the abdomen shows surgical clips throughout the quadrant. There is a filter in IVC. There are postop changes in the lower lumbosacral spine. Esophagus has a smooth contour. No mass or stricture is identified. No gastroesophageal reflux or hiatal hernia is identified. Contrast passes freely into the stomach. Stomach has a normal configuration. There is prompt emptying into the small bowel. The duodenal bulb is without deformity. Visualized proximal small bowel loops are unremarkable. IMPRESSION: Unremarkable upper GI. Dictated by: Dictated on workstation # [id number]
== END ==
LOC: RAD 10:42
DX: R10.32 Left lower quadrant pain (principal)
CPT/HCPCS: 74241

== ENCOUNTER → 2019-07-21 | Outpatient (CLI) | payer MEDICARE, MEDICAID ==
[~2019-07-21] MED LIST changes: -ACET-77 PO; +ACET-78 PO; +BARIUM SUSPENSION 2.1% (VANILLA SILQ) 450 ML PO ONE; -BARIUM for suspension 96% w/w (Vanilla Silq Medium Density) PO ONE; -BARIUM for suspension 98% w/w (Vanilla Silq High Density) PO ONE; +CATHETER FLUSH 10 ML SYR IV PRN; +HOLD METFORMIN - RECEIVED CONTRAST 20 ML VIAL IV SCH; +IOHEXOL 350 MG/ML 100 ML (OMNIPAQUE 350) VIAL IV ONE; +NS 100 ML (IVPB) BAG IV ONE; +OMEP40CA27 PO; -OMEP40CA36 PO; +OXYB5TAB13 PO; -OXYB5TAB9 PO; -RIZA10TA25 PO; +RIZA10TA94 PO
--- NOTE | 2019-07-21 11:24 | Diagnostic Imaging Report ---
PROCEDURE: CT chest and abdomen with contrast. TECHNIQUE: Multiple contiguous axial images were obtained through the chest and abdomen after the administration of intravenous contrast. Auto Exposure Controls were utilized during the CT exam to meet ALARA standards for radiation dose reduction. INDICATION: Lung cancer. Abdominal, back and rib pain. FINDINGS: The PET/CT exam performed on 01/04/2019 noted a spiculated subpleural density along the periphery of the right upper lobe. This finding seems similar to the CT chest exam of 09/27/2018. This area was only slightly hypermetabolic with a maximum SUV of 3.7. On this exam that finding is again evident and does measure somewhat larger than noted on the prior study. This area is now estimated to be 1.9 x 3.0 cm as opposed to 1.6 x 2.3 cm on the previous study of 09/27/2018. Although this finding did not show any significant hypermetabolic activity on the PET/CT the possibility that there is an underlying neoplastic process should still be considered. The overall appearance of the thorax is otherwise unchanged when compared to the prior exam. There are emphysematous changes involving both lungs but there is no sign of failure, pneumonia or pleural effusion. The mediastinum shows no significant adenopathy. The heart size is within normal limits. The aorta is not abnormally dilated. There is no sign of dissection. There is no defect within the pulmonary arteries to indicate a pulmonary embolus. There is no obvious breast mass. The sections through the upper abdomen again show several well-circumscribed low-density lesions within the liver. Most likely these are cysts. The cyst associated with the left kidney seen previously is again evident and no different. Kidneys are otherwise unremarkable. The pancreas, the adrenals, the aorta and the inferior vena cava show no sign of an acute abnormality. The vena cava filter seen previously is again evident and seems stable. As noted on the prior exam, the spleen and the gallbladder are surgically absent. The stomach is filled with oral contrast and consequently difficult to assess. The bone windows show no evidence for a fracture or for a destructive lesion. IMPRESSION: 1. The spiculated subpleural density along the periphery of the right upper lobe seen previously does measure slightly larger on this exam. The possibility that this is neoplastic in nature should certainly be considered. 2. There is no acute cardiopulmonary abnormality noted. 3. There is no acute abnormality of the abdomen identified either. Dictated on workstation # [id number]
--- NOTE | 2019-07-21 14:21 | Diagnostic Imaging Report ---
EXAM: Nuclear medicine whole body bone scan. Date: July 21, 2019. Indication: 59-year-old female, history of lung cancer. Evaluation for bone metastasis. Comparison: CT chest and abdomen July 21, 2019. PET/CT January 04, 2019. Findings: 26.7 mCi of technetium labeled MDP was administered. Delayed whole body bone scan images were subsequently obtained. There is radiotracer activity overlying the right mandible. There is radiotracer activity at the level of the mid to lower cervical spine. There is no additional identified radiotracer avid lesion. Impression: 1. Nonspecific radiotracer uptake at the level of the right mandible. Recommend correlation clinically and further evaluation with CT maxillofacial area without contrast. 2. Radiotracer uptake at the level of the mid to lower cervical spine which is likely degenerative related. Correlation with current imaging of the cervical spine is recommended. 3. No additional area of abnormal radiotracer uptake. Dictated by: Dictated on workstation # [id number]
== END ==
LOC: CARD 10:08
PROVIDERS: ATTEND Nurse Practitioner Adult Health
DX: C34.11 Malignant neoplasm of upper lobe, right bronchus or lung (principal); R10.9 Unspecified abdominal pain; M25.50 Pain in unspecified joint
CPT/HCPCS: 71260; 74160; 78306

== ENCOUNTER 2019-08-03 09:32 | Outpatient (RCR) | payer MEDICARE, MEDICAID ==
[2019-07-21 10:08] LABS: BASOPHILS % (AUTO) 0 % (0-10); EOSINOPHILS # (AUTO) 0.2 10^3/uL (0.0-0.3); EOSINOPHILS % (AUTO) 2 % (0-10); HEMATOCRIT 47 % (35-52); HEMOGLOBIN 14.8 G/DL (11.5-16.0); LYMPHOCYTES % (AUTO) 47 % (12-44); MEAN CORPUSCULAR HEMOGLOBIN 33 PG (25-34); MEAN CORPUSCULAR HGB CONC 32 G/DL (32-36); MEAN CORPUSCULAR VOLUME 105 FL (80-99); MONOCYTES # (AUTO) 0.9 X 10^3 (0.0-1.0); MONOCYTES % (AUTO) 9 % (0-12); NEUTROPHILS # (AUTO) 4.6 X 10^3 (1.8-7.8); NEUTROPHILS % (AUTO) 43 % (42-75); PLATELET COUNT 259 10^3/uL (130-400); RED CELL DISTRIBUTION WIDTH 13.4 % (10.0-14.5); WHITE BLOOD COUNT 10.7 10^3/uL (4.3-11.0)
[2019-07-21 10:29] LABS: CARBON DIOXIDE 26 MMOL/L (21-32); CHLORIDE 102 MMOL/L (98-107); POTASSIUM 4.1 MMOL/L (3.6-5.0); SODIUM 136 MMOL/L (135-145)
[2019-07-21 10:30] LABS: ALANINE AMINOTRANSFERASE 14 U/L (0-55); ALBUMIN 3.8 GM/DL (3.2-4.5); ALKALINE PHOSPHATASE 104 U/L (40-136); BILIRUBIN,TOTAL 0.2 MG/DL (0.1-1.0); BUN/CREATININE RATIO 20; CREATININE SERUM 0.66 MG/DL (0.60-1.30); GFR ESTIMATED > 60; GLUCOSE 97 MG/DL (70-105); TOTAL PROTEIN 6.9 GM/DL (6.4-8.2)
[~2019-08-03 09:32] MED LIST changes: -BARIUM SUSPENSION 2.1% (VANILLA SILQ) 450 ML PO ONE; -CATHETER FLUSH 10 ML SYR IV PRN; -HOLD METFORMIN - RECEIVED CONTRAST 20 ML VIAL IV SCH; -IOHEXOL 350 MG/ML 100 ML (OMNIPAQUE 350) VIAL IV ONE; -NS 100 ML (IVPB) BAG IV ONE; -ONDA8TAB12 PO; +ONDA8TAB15 PO
== END 2019-10-19 | disposition home or self-care (01) ==
LOC: ONC 09:32
PROVIDERS: ATTEND Internal Medicine Hematology & Oncology
DX: C34.11 Malignant neoplasm of upper lobe, right bronchus or lung (principal); J44.9 Chronic obstructive pulmonary disease, unspecified; F17.210 Nicotine dependence, cigarettes, uncomplicated; G82.20 Paraplegia, unspecified; Z92.3 Personal history of irradiation; Z99.81 Dependence on supplemental oxygen
CPT/HCPCS: 80053; 85025; 99213

== ENCOUNTER → 2020-01-10 | Outpatient (CLI) | payer MEDICARE, MEDICAID ==
--- NOTE | 2020-01-10 14:15 | Diagnostic Imaging Report ---
INDICATION: Squamous cell carcinoma of the lung, subsequent restaging. TECHNIQUE: The serum blood glucose level at the time of injection was 111 mg/dL. The patient was administered 15.6 mCi of F-18 FDG intravenously in the left antecubital location and PET imaging was performed from the top of the skull to the mid thighs. A noncontrast CT was also performed for attenuation correction and anatomic correlation. COMPARISON: Correlation is made with the prior PET/CT study from 01/04/2019. Comparison is also made with the prior CT chest, abdomen, and pelvis study from 07/21/2019. FINDINGS: Symmetric activity throughout the brain is again noted. There is physiologic activity within the soft tissues of the neck. The slightly nodular subpleural density in the right upper lobe is again noted. The overall size is stable when compared with the prior CT from July. There continues to be some hypermetabolism present with an SUV max of approximately 5.5 compared with 3.7. Vague uptake just medial and slightly inferior to this in the right upper lobe is noted with an SUV max of approximately 3.3. A slightly irregular density is identified at this location but appears stable when compared with the prior exam. No mediastinal or hilar hypermetabolism is identified. There are emphysematous changes throughout both lungs. Physiologic activity in the GI and tracts of the abdomen and pelvis is noted. No suspicious hypermetabolism is identified. IMPRESSION: Overall stable PET/CT study when compared with the exam from 01/04/2019. Areas of hypermetabolism in the right upper lobe are stable. No new abnormality is detected. Dictated by: Dictated on workstation # [id number]
== END ==
LOC: RAD 08:00
PROVIDERS: ATTEND Radiology Radiation Oncology
DX: C34.11 Malignant neoplasm of upper lobe, right bronchus or lung (principal)
CPT/HCPCS: 78815; A9552

== ENCOUNTER 2020-01-18 07:57 | Outpatient (RCR) | payer MEDICARE, MEDICAID | END 2020-04-17 | disposition home or self-care (01) | LOC: ONC 07:57 | PROVIDERS: ATTEND Internal Medicine Hematology & Oncology | DX: C34.11 Malignant neoplasm of upper lobe, right bronchus or lung (principal); J44.9 Chronic obstructive pulmonary disease, unspecified; F17.210 Nicotine dependence, cigarettes, uncomplicated; G82.20 Paraplegia, unspecified; Z92.3 Personal history of irradiation; Z99.81 Dependence on supplemental oxygen | CPT/HCPCS: 99213 ==

== ENCOUNTER → 2020-03-15 | Outpatient (CLI) | payer MEDICARE, MEDICAID ==
--- NOTE | 2020-03-15 12:30 | Diagnostic Imaging Report ---
INDICATION: Low back pain. TIME OF EXAM: 10:34 a.m. EXAMINATION: Frontal and lateral views of the lumbar spine were obtained. FINDINGS: Curvature and alignment is normal. Postop changes anterior lumbar interbody fusion at L5-S1 noted. Vertebral body heights appear to be maintained. No acute compression fracture is detected. The disc spaces are fairly well maintained. Note is made of an IVC filter within the right paraspinous tissues at the level of L4. IMPRESSION: Postop changes. No acute bony abnormality is identified. Dictated by: Dictated on workstation # [id number]
== END ==
LOC: RAD 10:24
DX: M54.5 Low back pain (principal); Z98.890 Other specified postprocedural states
CPT/HCPCS: 72100

== ENCOUNTER → 2020-03-20 | Outpatient (CLI) | payer MEDICARE, MEDICAID ==
--- NOTE | 2020-03-20 14:32 | Diagnostic Imaging Report ---
INDICATION: Postmenopausal state. COMPARISON: None available. FINDINGS: AP Spine L1-L4: [BMD (g/cm2): 0.809] [T-Score: -3.3] [Z-Score: -1.5] [BMD Previous: NA] [BMD % Change: NA] LT Hip Neck: [BMD (g/cm2): 0.501] [T-Score: -3.9] [Z-Score: -2.2] LT Hip Total: [BMD (g/cm2):0.494] [T-Score:-4.1] [Z-Score: -2.7] [BMD Previous: NA] [BMD % Change: NA] RT Hip Neck: [BMD (g/cm2):0.522] [T-Score:-3.7] [Z-Score:-2.1] RT Hip Total: [BMD (g/cm2):0.537] [T-score:-3.7] [Z-Score:-2.4] [BMD Previous:NA] [BMD % Change:NA] *Indicates significant change from prior examination based on 95% confidence level. World Health Organization criteria for BMD interpretation classify patients as Normal (T-score at or above -1.0), Osteopenic (T-score between -1.0 and -2.5) or Osteoporotic (T-score at or below -2.5). LIMITATIONS AND MODIFICATION: None. IMPRESSION: 1. Osteoporosis. 2. Baseline examination. 3. See below National Osteoporosis Foundation guidelines on when to potentially initiate pharmacologic therapy. Based on the National Osteoporosis Foundation Guidelines, pharmacologic treatment should be initiated in any of the following, unless clinical conditions suggest otherwise: * Any patient with prior fragility fracture of the hip or vertebrae. A spine fracture indicates 5X risk for subsequent spine fracture and 2X risk for subsequent hip fracture. * Osteoporosis (T-score <-2.5). * Postmenopausal women and men age 50 and older with low bone mass/osteopenia (T-score between -1.0 and -2.5) by DXA and 10-year major osteoporotic fracture greater than 20% or a 10-year probability of hip fracture greater than 3%. These fracture risks are supplied above in the FRAX score, if applicable. * Clinician judgement and/or patient preferences may indicate treatment for people with 10-year fracture probabilities above or below these levels. Dictated by: Dictated on workstation # [id number]
== END ==
LOC: RAD 12:22
DX: M81.0 Age-related osteoporosis without current pathological fracture (principal); Z78.0 Asymptomatic menopausal state
CPT/HCPCS: 77080

== ENCOUNTER 2020-04-13 11:59 | Outpatient (CLI) | payer MEDICARE, MEDICAID ==
[2020-04-13 12:00] VITALS: BP 104/78
[2020-04-13] MEDS ORDERED: ZOLEDRONATE (NON-FORMULARY) 100 ML IV ONE (12:30)
== END 2020-04-13 13:20 | disposition home or self-care (01) ==
LOC: SDC 11:59
DX: M81.0 Age-related osteoporosis without current pathological fracture (principal)
CPT/HCPCS: 96365

== ENCOUNTER → 2020-04-25 | Outpatient (CLI) | payer MEDICARE, MEDICAID ==
[~2020-04-25] MED LIST changes: +CATHETER FLUSH 10 ML SYR IV PRN; +HOLD METFORMIN - RECEIVED CONTRAST 20 ML VIAL IV SCH; +IOHEXOL 350 MG/ML 100 ML (OMNIPAQUE 350) VIAL IV ONE; +NS 100 ML (IVPB) BAG IV ONE
[2020-04-25 10:01] LABS: BUN/CREATININE RATIO 32; CREATININE SERUM 0.79 MG/DL (0.60-1.30); GFR ESTIMATED > 60
--- NOTE | 2020-04-25 10:44 | Diagnostic Imaging Report ---
EXAMINATION: CT Chest with intravenous contrast. TECHNIQUE: Multiple contiguous axial images were obtained through the chest after the uneventful administration of intravenous contrast. All CT scans use one or more of the following dose optimizing techniques: automated exposure control, MA and/or KvP adjustment based on a patient size and exam type, or iterative reconstruction. HISTORY: Non-small cell lung cancer. COMPARISON: 07/21/2019. FINDINGS: There is no edema or pneumonia. No pleural effusion. No pneumothorax. There is a stable peripheral nodule in the right upper lobe measuring 2.5 x 1.1 cm, previously 2.5 x 1.0 cm. There are surrounding spiculations in the large surrounding cavity. No new nodules are seen. There is no axillary or supraclavicular lymphadenopathy. There is no mediastinal lymphadenopathy. Heart size is normal. There are no coronary artery calcifications. No pericardial effusion. Aorta is normal in caliber. Limited views of the upper abdomen show two cysts in the liver. Gallbladder is absent. There is an inferior vena cava filter. Cyst is present in the left kidney. There are no suspicious osseous lesions. IMPRESSION: 1. Stable peripheral nodule in the right upper lobe with surrounding spiculations in the large cavity. No new nodules or metastatic disease seen. Dictated by: Dictated on workstation # [id number]
== END ==
LOC: RAD 10:45
PROVIDERS: ATTEND Nurse Practitioner Family
DX: C34.11 Malignant neoplasm of upper lobe, right bronchus or lung (principal); Z90.49 Acquired absence of other specified parts of digestive tract
CPT/HCPCS: 36415; 71260; 82565; 84520

== ENCOUNTER 2020-04-26 15:00 | Outpatient (RCR) | payer MEDICARE, MEDICAID ==
[~2020-04-26 15:00] MED LIST changes: -CATHETER FLUSH 10 ML SYR IV PRN; -HOLD METFORMIN - RECEIVED CONTRAST 20 ML VIAL IV SCH; -IOHEXOL 350 MG/ML 100 ML (OMNIPAQUE 350) VIAL IV ONE; -NS 100 ML (IVPB) BAG IV ONE
== END 2020-07-25 ==
LOC: ONC 15:00
PROVIDERS: ATTEND Internal Medicine Hematology & Oncology
DX: C34.11 Malignant neoplasm of upper lobe, right bronchus or lung (principal); J44.9 Chronic obstructive pulmonary disease, unspecified; G82.20 Paraplegia, unspecified; F41.9 Anxiety disorder, unspecified; F17.210 Nicotine dependence, cigarettes, uncomplicated; Z92.3 Personal history of irradiation; Z99.81 Dependence on supplemental oxygen
CPT/HCPCS: 99213

== ENCOUNTER → 2020-04-30 | Outpatient (CLI) | payer MEDICARE, MEDICAID ==
[~2020-04-30] MED LIST changes: +GADOBUTROL 7.5 MMOL/7.5 ML (GADAVIST) VIAL IV ONE
--- NOTE | 2020-04-30 20:36 | Diagnostic Imaging Report ---
PROCEDURE: MR imaging of the brain with and without contrast. TECHNIQUE: Multiplanar, multisequence MR imaging of the brain was performed with and without contrast. DATE: April 30, 2020. COMPARISON: MRI brain June 19, 2016. HISTORY: 60-year-old female, history of lung cancer. Worsening headaches. Evaluation for metastatic disease to brain. FINDINGS: There is no restricted diffusion. There are no areas of abnormal intracranial susceptibility. The ventricles and CSF spaces are normal in size and configuration for patient age. There is no abnormal extra axial fluid collection. There is no acute intracranial hemorrhage. There is no mass effect or midline shift. There are no areas of abnormal intracranial signal. There is normal aeration of the visualized paranasal sinuses and mastoid air cells. IMPRESSION: 1. No evidence of metastatic disease to brain or other acute intracranial abnormality. Dictated by: Dictated on workstation # [id number]
== END ==
LOC: RAD 15:30
PROVIDERS: ATTEND Radiology Radiation Oncology
DX: R51.9 Headache, unspecified (principal)
CPT/HCPCS: 70553

== ENCOUNTER → 2020-08-07 | Outpatient (CLI) | payer MEDICARE, MEDICAID ==
[~2020-08-07] MED LIST changes: -GADOBUTROL 7.5 MMOL/7.5 ML (GADAVIST) VIAL IV ONE; +RT-ALBUTEROL SULF 2.5 MG/3 ML PRE-MIX VIAL INH ONE
== END ==
LOC: RT 14:53
DX: J41.8 Mixed simple and mucopurulent chronic bronchitis (principal)
CPT/HCPCS: 94060; 94726; 94729

== ENCOUNTER → 2020-10-23 | Outpatient (CLI) | payer MEDICARE, MEDICAID ==
[~2020-10-23] MED LIST changes: +CATHETER FLUSH 10 ML SYR IV PRN; +HOLD METFORMIN - RECEIVED CONTRAST 20 ML VIAL IV SCH; +IOHEXOL 350 MG/ML 100 ML (OMNIPAQUE 350) VIAL IV ONE; +NS 100 ML (IVPB) BAG IV ONE; -RT-ALBUTEROL SULF 2.5 MG/3 ML PRE-MIX VIAL INH ONE
[2020-10-23 10:21] LABS: BUN/CREATININE RATIO 30; CREATININE SERUM 0.71 MG/DL (0.60-1.30); GFR ESTIMATED > 60
--- NOTE | 2020-10-23 12:48 | Diagnostic Imaging Report ---
PROCEDURE: CT chest with contrast only. TECHNIQUE: Multiple contiguous axial images were obtained through the chest after administration of intravenous contrast. Auto Exposure Controls were utilized during the CT exam to meet ALARA standards for radiation dose reduction. INDICATION: Difficulty breathing. COMPARISON: 04/25/2020. Other remote comparisons described a history of non-small cell carcinoma of the lung. FINDINGS: The thoracic aorta is patent and nonaneurysmal. There is no pulmonary arterial embolus or filling defect. No effusion or pneumothorax. A cystic/cavitary lesion in the patient's right upper lobe laterally is again noted. Along its lateral and superior margins, a more irregular spiculated soft tissue component is noted; however, this has improved in the interim. No pathological-appearing axillary, hilar, or mediastinal lymph nodes. The chest wall reveals no acute or suspicious finding. There is no effusion or pneumothorax. Heterogeneous air trapping and features of centrilobular emphysema are chronic. The visualized upper abdomen shows the partially visualized IVC filter, previous cholecystectomy, left hepatic lobe cyst, and partially visualized left renal cortical cysts with no acute abnormality or appreciable change. The visualized adrenal glands normal. IMPRESSION: The cystic lesion in the right upper lobe is stable in size; however, its soft tissue component laterally extending to the pleura shows significant improvements with no adverse development or lymphadenopathy. No new mass and no findings suggestive of acute pneumonia or demonstrated metastasis. Dictated by: Dictated on workstation # [id number]
== END ==
LOC: RAD 09:21
PROVIDERS: ATTEND Radiology Radiation Oncology
DX: C34.11 Malignant neoplasm of upper lobe, right bronchus or lung (principal); J98.4 Other disorders of lung
CPT/HCPCS: 36415; 71260; 82565; 84520

== ENCOUNTER → 2021-02-01 | Outpatient (CLI) | payer MEDICARE, MEDICAID ==
[~2021-02-01] MED LIST changes: -ARIP10TA17 PO; +ARIP10TA55 PO; -CATHETER FLUSH 10 ML SYR IV PRN; -HOLD METFORMIN - RECEIVED CONTRAST 20 ML VIAL IV SCH; -IOHEXOL 350 MG/ML 100 ML (OMNIPAQUE 350) VIAL IV ONE; -NS 100 ML (IVPB) BAG IV ONE; -OMEP40CA27 PO; +OMEP40CA6 PO
--- NOTE | 2021-02-01 13:55 | Diagnostic Imaging Report ---
INDICATION: Shortness of breath PA and lateral chest Comparison made to study from 04/22/2018. There are emphysematous changes in the lungs with air trapping. There is a cavitary lesion in the right upper lobe. This has a thin wall and measures 4.5 x 3.2 cm. IMPRESSION: Thin-walled cavitary lesion right upper lobe could be neoplastic or infectious. Further evaluation CT recommended. Critical finding Faxed to Dr. Brandin Sher at 1:53 p.m. by cvb. Dictated by: Dictated on workstation # [id number]
== END ==
LOC: RAD 10:30
DX: R91.8 Other nonspecific abnormal finding of lung field (principal)
CPT/HCPCS: 71046

== ENCOUNTER → 2021-04-23 | Outpatient (CLI) | payer MEDICARE, MEDICAID ==
[~2021-04-23] MED LIST changes: +CATHETER FLUSH 10 ML SYR IV PRN; +HOLD METFORMIN - RECEIVED CONTRAST 20 ML VIAL IV SCH; +IOHEXOL 350 MG/ML 100 ML (OMNIPAQUE 350) VIAL IV ONE; +NS 100 ML (IVPB) BAG IV ONE
[2021-04-23 11:04] LABS: CREATININE SERUM 0.7 MG/DL (0.60-1.30)
--- NOTE | 2021-04-23 13:37 | Diagnostic Imaging Report ---
PROCEDURE: CT chest with contrast only. TECHNIQUE: Multiple contiguous axial images were obtained through the chest after administration of intravenous contrast. Auto Exposure Controls were utilized during the CT exam to meet ALARA standards for radiation dose reduction. INDICATION: Lung cancer. FINDINGS: The cystic cavity in the right upper lobe is unchanged in size laterally abutting the thickened pleura. Its caudal component does show some progressive nodularity. This may be some progressive scarring on a post-treatment basis, but continued follow-up recommended. There is heterogeneous air trapping and features of centrilobular emphysema. There is no hilar or mediastinal lymphadenopathy. There is no pneumothorax. The aorta and central pulmonary arterial branches are patent. There is new pleural or subpleural soft tissue density thickening in the chest including a lesion just anterior to the proximal right eighth rib measuring 2.6 x 1.2 cm and a lesion to the right of the ninth thoracic vertebral body measuring 1.9 x 1 cm. There is no associated pleural effusion. Left pleura and subpleural chest wall appeared normal. No suspicious lytic or sclerotic bony lesion. Aside from centrilobular emphysema, the left lung appeared normal. The visualized upper abdomen demonstrates an IVC filter and previous cholecystectomy. There are scattered hepatic cysts with some stable mild post-cholecystectomy ectasia of the bile ducts. The adrenal glands were negative. IMPRESSION: 1. Cystic cavity in the right upper lobe, unchanged in size. Along its inferior margin, there is some increased nodularity and parenchymal density as well as new pleural-based or subpleural mass effects in the right hemithorax without pleural effusion. Metabolic PET/CT may be of benefit to assess for hypermetabolism. The pleural lesions could be sampled percutaneously with CT guidance if desired. 2. Underlying COPD, chronic. Stable appearance of the visualized upper abdomen. No thoracic adenopathy or acute vascular pathology. Dictated by: Dictated on workstation # [id number]
== END ==
LOC: RAD 10:36
PROVIDERS: ATTEND Radiology Radiation Oncology
DX: C34.11 Malignant neoplasm of upper lobe, right bronchus or lung (principal); J94.8 Other specified pleural conditions; J44.9 Chronic obstructive pulmonary disease, unspecified
CPT/HCPCS: 36415; 71260; 82565; 84520

== ENCOUNTER → 2021-04-30 | Outpatient (CLI) | payer MEDICARE, MEDICAID ==
[~2021-04-30] MED LIST changes: -CATHETER FLUSH 10 ML SYR IV PRN; -HOLD METFORMIN - RECEIVED CONTRAST 20 ML VIAL IV SCH; -IOHEXOL 350 MG/ML 100 ML (OMNIPAQUE 350) VIAL IV ONE; -NS 100 ML (IVPB) BAG IV ONE; +ONDA-106 PO; -ONDA8TAB15 PO; +POTA-169 PO; -POTA20TA8 PO
--- NOTE | 2021-04-30 16:15 | Diagnostic Imaging Report ---
INDICATION: Non-small cell lung cancer, restaging. Serum blood glucose level at the time of injection is 112 mg/dL. The patient was administered 14.3 mCi F18-FDG intravenously in the left antecubital location and PET imaging was performed from the top of the skull to mid thighs. Noncontrast CT was also performed for attenuation correction and anatomic correlation. COMPARISON is made with prior PET/CT study from 01/10/2020. There is symmetric activity throughout the brain. Soft tissues of the neck are unremarkable. There is increasing hypermetabolic activity in the right upper lobe. There is increasing abnormal soft tissue in the right upper lobe extending towards the right hilum on today's study. This again does contain a cystic component. Overall density measures approximately 5.3 x 4.0 cm. SUV max measures up to 6.5. Left hilum is unremarkable. No other pulmonary parenchymal areas of hypermetabolism are identified. However, patient has developed areas of pleural thickening and nodularity along the medial inferior pleura on the right. Nodular component measures approximately 2.9 x 1.4 cm. A right paraspinous region of nodularity is present as well more inferiorly measuring 1.9 x 1.0 cm. However, these areas are not hypermetabolic. Abdomen and pelvis demonstrate physiologic activity throughout the gastrointestinal and genitourinary tracts. No suspicious hypermetabolism is identified. IMPRESSION: Enlarging hypermetabolic mass in the right upper lobe when compared with prior study from 01/10/2020. This now extends to the right hilum. There is a cystic component containing gas. No other suspicious regions of hypermetabolism are identified. The patient has developed areas of pleural thickening and nodularity along the medial right lower chest pleura, however. Dictated by: Dictated on workstation # [id number]
== END ==
LOC: RAD 12:45
PROVIDERS: ATTEND Radiology Radiation Oncology
DX: C34.11 Malignant neoplasm of upper lobe, right bronchus or lung (principal)
CPT/HCPCS: 78815; A9552

== ENCOUNTER 2021-05-09 11:47 | Outpatient (RCR) | payer MEDICARE, MEDICAID | END 2021-06-07 | disposition home or self-care (01) | LOC: ONC 11:47 | PROVIDERS: ATTEND Internal Medicine Hematology & Oncology | DX: C34.11 Malignant neoplasm of upper lobe, right bronchus or lung (principal); J44.9 Chronic obstructive pulmonary disease, unspecified; F41.8 Other specified anxiety disorders; Z92.3 Personal history of irradiation; Z99.81 Dependence on supplemental oxygen; Z72.0 Tobacco use | CPT/HCPCS: 99213 ==

== ENCOUNTER → 2021-06-27 | Outpatient (CLI) | payer MEDICARE, MEDICAID ==
[~2021-06-27] MED LIST changes: +BARIUM SUSPENSION 2.1% (VANILLA SILQ) 450 ML PO ONE; +CATHETER FLUSH 10 ML SYR IV PRN; +GADOTERATE 0.5 MMOL/ML (CLARISCAN) 20 ML VIAL IV ONE; +HOLD METFORMIN - RECEIVED CONTRAST 20 ML VIAL IV SCH; +IOHEXOL 350 MG/ML 100 ML (OMNIPAQUE 350) VIAL IV ONE; +NS 100 ML (IVPB) BAG IV ONE
--- NOTE | 2021-06-27 09:28 | Diagnostic Imaging Report ---
PROCEDURE: CT chest with contrast, CT abdomen and pelvis with and without contrast. TECHNIQUE: Pre and post intravenous contrast axial imaging of the abdomen and pelvis and post contrast axial imaging of the chest were performed. Auto Exposure Controls were utilized during the CT exam to meet ALARA standards for radiation dose reduction. INDICATION: Post radiation treatment for lung cancer. Chest pain. Comparison with CT chest from 04/23/2021, PET/CT 04/30/2021 has increased slightly in size today measuring 2.5 x 1.7 cm. This previously measured 1.[address] CHEST: The cavitary cystic mass in the right upper lung appears unchanged. The pleural-based oval soft tissue nodule paraspinous region right mid chest noted on previous PET scan. There is a small pleural effusion on the right now. No infiltrates or other masses have developed. Good opacification of the vessels. No mediastinal or hilar adenopathy of pathologic size. No pericardial effusion. No blastic or lytic bony lesions are seen. IMPRESSION: 1. The paraspinal soft tissue nodule on the right mid chest has increased in size slightly. There is no associated bony erosion. 2. Increasing right pleural effusion with right basilar atelectasis. 3. Cavitary lesion in the right upper lung is unchanged. CT abdomen and pelvis: Comparison with 07/21/2019. Good opacification of the aorta and abdominal vessels. There is a simple cyst in the right lobe of the liver unchanged. Gallbladder is absent. Bile ducts are not dilated. Pancreas is atrophic. There is a cyst in the left kidney which is benign in appearance. No hydronephrosis or calculi. The adrenal glands are not enlarged. No intra-abdominal adenopathy of pathologic size. Oral contrast is present in the stomach and small bowel which appear normal. Colon shows normal stool and gas pattern. Bladder is normal. No free air or free fluid. There is mild superior endplate compression fracture of L4 involving both the anterior and posterior kilpatrick which was not present previously. No blastic or lytic changes. IMPRESSION: 1. No findings are seen to suggest metastatic disease. 2. There is a compression fracture mild in nature along the superior endplate of L4 which was not present on previous CT scan. Dictated by: Dictated on workstation # [id number]
--- NOTE | 2021-06-27 11:16 | Diagnostic Imaging Report ---
PROCEDURE: MR imaging of the brain with and without contrast. TECHNIQUE: Multiplanar, multisequence MR imaging of the brain was performed with and without contrast. INDICATION: Altered mental status. Intermittent confusion. Lung cancer. COMPARISON: MRI brain without and with IV contrast 04/30/2020. FINDINGS: Examination limited by motion. Mild generalized volume loss. No abnormal intracranial signal or enhancement identified. No restricted water diffusion. No hemosiderin deposition or evidence of intracranial hemorrhage. Normal morphology including the major midline structures, sella, posterior fossa and cerebellar pontine angle. Normal intracranial flow voids. No hydrocephalus or extra-axial fluid collections. The orbits are negative. Paranasal sinuses and mastoids are unremarkable. Normal bone marrow signal. IMPRESSION: 1. Examination limited by motion. 2. No acute intracranial MRI findings. No evidence of intracranial metastases. Dictated by: Dictated on workstation # [id number]
--- NOTE | 2021-06-27 11:20 | Diagnostic Imaging Report ---
PROCEDURE: MRI neck with and without contrast. TECHNIQUE: Multiplanar, multisequence MRI of the neck was performed with and without contrast. INDICATION: Neck pain. Lung cancer. COMPARISON: Nuclear medicine [facility] PET/CT 04/30/2021. FINDINGS: Examination is limited by motion. No mass, fluid collection or lymphadenopathy is identified in the neck. The floor of the mouth, tongue base, epiglottis and retropharyngeal space are unremarkable. No suspicious mass or enhancement in the pharynx or larynx. Flow voids are grossly normal. The thyroid and major salivary glands are unremarkable. Anterior fusion at C7-T1. The cervical spinal cord is grossly negative. Grade 1 anterolisthesis of C4 and C5. Partially visualized cystic mass in the right upper lobe measures at least 4.8 cm. IMPRESSION: 1. Examination limited by motion. 2. No suspicious mass, fluid collection or lymphadenopathy seen in the neck. 3. Partially visualized cystic mass in the right upper lobe is better demonstrated on prior exams. 4. Anterior fusion at C7-T1. Dictated by: Dictated on workstation # [id number]
== END ==
LOC: RAD 08:15
PROVIDERS: ATTEND Internal Medicine Hematology & Oncology
DX: C34.90 Malignant neoplasm of unspecified part of unspecified bronchus or lung (principal); M48.56XA Collapsed vertebra, not elsewhere classified, lumbar region, initial encounter for fracture; M96.1 Postlaminectomy syndrome, not elsewhere classified; R41.82 Altered mental status, unspecified; Z98.1 Arthrodesis status; Z92.3 Personal history of irradiation
CPT/HCPCS: 70543; 70553; 71260; 74178

== ENCOUNTER 2021-07-05 10:25 | Outpatient (RCR) | payer MEDICARE, MEDICAID ==
[2021-06-21 14:49] LABS: BASOPHILS % (AUTO) 0 % (0-10); EOSINOPHILS # (AUTO) 0.2 10^3/uL (0.0-0.3); EOSINOPHILS % (AUTO) 3 % (0-10); HEMATOCRIT 40 % (35-52); HEMOGLOBIN 12.1 g/dL (11.5-16.0); LYMPHOCYTES # (AUTO) 3.5 10^3/uL (1.0-4.0); LYMPHOCYTES % (AUTO) 49 % (12-44); MEAN CORPUSCULAR HEMOGLOBIN 31 pg (25-34); MEAN CORPUSCULAR HGB CONC 31 g/dL (32-36); MEAN CORPUSCULAR VOLUME 101 fL (80-99); MEAN PLATELET VOLUME 8.9 fL (9.0-12.2); MONOCYTES # (AUTO) 0.5 10^3/uL (0.0-1.0); MONOCYTES % (AUTO) 7 % (0-12); NEUTROPHILS # (AUTO) 2.9 10^3/uL (1.8-7.8); NEUTROPHILS % (AUTO) 40 % (42-75); PLATELET COUNT 349 10^3/uL (130-400); WHITE BLOOD COUNT 7.2 10^3/uL (4.3-11.0)
[2021-06-21 15:10] LABS: ALBUMIN 3.7 GM/DL (3.2-4.5); BILIRUBIN,TOTAL 0.2 MG/DL (0.1-1.0); CALCIUM 9.6 MG/DL (8.5-10.1); CREATININE SERUM 0.73 MG/DL (0.60-1.30); POTASSIUM 3.8 MMOL/L (3.6-5.0); TOTAL PROTEIN 7.4 GM/DL (6.4-8.2)
[~2021-07-05 10:25] MED LIST changes: -BARIUM SUSPENSION 2.1% (VANILLA SILQ) 450 ML PO ONE; -CATHETER FLUSH 10 ML SYR IV PRN; -GADOTERATE 0.5 MMOL/ML (CLARISCAN) 20 ML VIAL IV ONE; -HOLD METFORMIN - RECEIVED CONTRAST 20 ML VIAL IV SCH; -IOHEXOL 350 MG/ML 100 ML (OMNIPAQUE 350) VIAL IV ONE; -NS 100 ML (IVPB) BAG IV ONE
== END 2021-07-08 | disposition home or self-care (01) ==
LOC: ONC 10:25
PROVIDERS: ATTEND Internal Medicine Hematology & Oncology
DX: C34.11 Malignant neoplasm of upper lobe, right bronchus or lung (principal); F41.8 Other specified anxiety disorders; J44.9 Chronic obstructive pulmonary disease, unspecified; Z92.3 Personal history of irradiation
CPT/HCPCS: 80053; 85025; G0463; 99213; 99214

== ENCOUNTER 2021-07-18 12:45 | Outpatient (CLI) | payer MEDICARE, MEDICAID ==
[2021-07-18] VITALS (13 sets, daily range): BP systolic 82–117; BP diastolic 45–76
[2021-07-18 12:19] LABS: BASOPHILS % (AUTO) 0 % (0-10); EOSINOPHILS # (AUTO) 0.3 10^3/uL (0.0-0.3); EOSINOPHILS % (AUTO) 2 % (0-10); HEMATOCRIT 36 % (35-52); HEMOGLOBIN 10.7 g/dL (11.5-16.0); LYMPHOCYTES # (AUTO) 3.4 10^3/uL (1.0-4.0); LYMPHOCYTES % (AUTO) 22 % (12-44); MEAN CORPUSCULAR HEMOGLOBIN 31 pg (25-34); MEAN CORPUSCULAR HGB CONC 30 g/dL (32-36); MEAN CORPUSCULAR VOLUME 104 fL (80-99); MEAN PLATELET VOLUME 8.9 fL (9.0-12.2); MONOCYTES # (AUTO) 0.8 10^3/uL (0.0-1.0); MONOCYTES % (AUTO) 5 % (0-12); NEUTROPHILS # (AUTO) 11.2 10^3/uL (1.8-7.8); NEUTROPHILS % (AUTO) 71 % (42-75); PLATELET COUNT 380 10^3/uL (130-400); WHITE BLOOD COUNT 15.7 10^3/uL (4.3-11.0)
[2021-07-18 12:31] LABS: PROTHROMBIN TIME PATIENT 13.5 SEC (12.2-14.7)
[~2021-07-18 12:45] MED LIST changes: +LIDOCAINE 1% INJ 20 ML VIAL INJ ONE; +LIDOCAINE 1% INJ 20 ML VIAL ONE; +MIDAZOLAM 2 MG/2 ML (VERSED) VIAL INJ ONE; +MIDAZOLAM 2 MG/2 ML (VERSED) VIAL ONE; +NS IV 1000 ML 1,000 ML IV SCH; +fentaNYL INJ 100 MCG/2 ML AMP INJ ONE; +fentaNYL INJ 100 MCG/2 ML AMP ONE
[2021-07-18 12:50] LABS: BAND NEUTROPHILS 4 %; BASOPHILS % (MANUAL) 0 %; EOSINOPHILS % (MANUAL) 3 %; LYMPHOCYTES % (MANUAL) 28 %; MONOCYTES % (MANUAL) 3 %; NEUTROPHILS % (MANUAL) 62 %; RBC MORPH NORMAL
--- NOTE | 2021-07-18 13:42 | Pre-Op Note & Conscious Sedat ---
Pre-Operative Progress Note H&P Reviewed The H&P was reviewed, patient examined and no changes noted. Date H&P Reviewed: Jul 18, 2021 Time H&P Reviewed: 12:00 Pre-Op Diagnosis: lung mass Conscious Sedation Pre-Proced Time 12:00 ASA Score 2 For ASA 3 and 4: Consider anesthesia and medical clearance. Also, for patients with a history of failed moderate sedation consider anesthesia. Airway Lungs Heart ASA score ASA 1: a normal healthy patient ASA 2: a patient with a mild systemic disease (mid diabetes, controlled hypertension, obesity ASA 3: a patient with a severe systemic disease that limits activity (angina, COPD, prior Myocardial infarction) ASA 4: a patient with an incapacitating disease that is a constant threat to life (CHF, renal failure) ASA 5: a moribund patient not expected to survive 24 hrs. (ruptured aneurysm) ASA 6: a declared brain- patient whose organs are being harvested. For emergent operations, add the letter E after the classification Mallampati Classification Grade 2 Sedation Plan Analgesia, Amnesia, Plan communicated to team members, Discussed options with patient/fam, Discussed risks with patient/fam The patient is an appropriate candidate to undergo the planned procedure, sedation, and anesthesia. The patient immediately re-assessed prior to indication. MARIANO FORDE MD Jul 18, 2021 13:42
[2021-07-18] MEDS ORDERED: HYDROcodone/APAP 5 MG/325 MG (LORTAB) TAB PO PRN (14:15)
--- NOTE | 2021-07-18 14:42 | Diagnostic Imaging Report ---
INDICATION: Right lung mass. Patient presents for CT-guided biopsy. TECHNIQUE: All CT scans use one or more of the following dose optimizing techniques: automated exposure control, MA and/or KvP adjustment based on patient size and exam type or iterative reconstruction. The patient was brought to the CT suite placed on table in the supine position. Axial imaging through the chest was performed to evaluate appropriate entry site. Procedure was performed utilizing conscious sedation with radiology nursing and constant patient monitoring. Patient was given a total of 1 mg of Versed intravenously and 100 mcg of fentanyl intravenously. Total procedure time was 9 minutes. 18-gauge coaxial Temno needle was advanced and placed with its tip along the margin of the cavitary mass in the right upper lobe. Needle was placed in the thicker portion of the soft tissue density laterally. 2 core biopsies were obtained. Blood patch was injected during needle removal. Hemostasis was obtained using manual compression. Follow-up imaging shows no pneumothorax. Patient tolerated procedure well and left the department in stable condition. IMPRESSION: Successful CT-guided biopsy of right upper lobe cavitary lung mass, utilizing conscious sedation. Pathology results are currently pending. Dictated by: Dictated on workstation # [id number]
--- NOTE | 2021-07-18 16:23 | Diagnostic Imaging Report ---
INDICATION: Status post lung biopsy. COMPARISON: 02/01/2021. FINDINGS: Single frontal radiographic view of the chest was obtained and again demonstrates cavitary lesion of the right upper lobe. There is no pneumothorax or large effusion on either side. The lungs are otherwise clear. Cardiac silhouette and pulmonary vasculature are within normal limits. IMPRESSION: 1. No pneumothorax status post right lung biopsy. 2. Redemonstration of right apical cavitary lesion. Dictated by: Dictated on workstation # [id number]
== END 2021-07-18 16:00 ==
LOC: RAD 12:45
PROVIDERS: ATTEND Internal Medicine Hematology & Oncology
DX: C34.11 Malignant neoplasm of upper lobe, right bronchus or lung (principal); Z98.890 Other specified postprocedural states
CPT/HCPCS: 36415; 71045; 77012; 85007; 85027; 85610; 85730

== ENCOUNTER → 2021-08-05 | Outpatient (RCR) | payer MEDICARE, MEDICAID ==
[~2021-08-05] MED LIST changes: -LIDOCAINE 1% INJ 20 ML VIAL INJ ONE; -LIDOCAINE 1% INJ 20 ML VIAL ONE; -MIDAZOLAM 2 MG/2 ML (VERSED) VIAL INJ ONE; -MIDAZOLAM 2 MG/2 ML (VERSED) VIAL ONE; -NS IV 1000 ML 1,000 ML IV SCH; -fentaNYL INJ 100 MCG/2 ML AMP INJ ONE; -fentaNYL INJ 100 MCG/2 ML AMP ONE
== END ==
LOC: ONC 07-24 12:54
PROVIDERS: ATTEND Internal Medicine Hematology & Oncology
DX: C34.11 Malignant neoplasm of upper lobe, right bronchus or lung (principal); F41.8 Other specified anxiety disorders; J44.9 Chronic obstructive pulmonary disease, unspecified; Z92.3 Personal history of irradiation
CPT/HCPCS: 99213

== ENCOUNTER 2021-08-23 05:30 | Outpatient (CLI) | payer MEDICARE, MEDICAID ==
[~2021-08-23] VITALS: Ht 160 cm; Wt 43.2 kg
[2021-08-26] MEDS ORDERED: HYOS-6 PO (13:01)
[2021-08-26] MEDS ORDERED: BENZ200C51 PO (13:01)
[2021-08-26] MEDS ORDERED: RT-ALBUINH INH (13:01)
[2021-08-26] MEDS ORDERED: SILV20CR14 TP (13:01)
[2021-08-26] MEDS ORDERED: TOPI25TA10 PO (13:01)
[2021-08-26] MEDS ORDERED: LIDO40SO MM (13:01)
[2021-08-26] MEDS ORDERED: ERGO1250 PO (13:01)
[2021-08-26] MEDS ORDERED: LEVO100T7 PO (13:01)
[2021-08-26] MEDS ORDERED: ALEN70TA80 PO (13:01)
== END 2021-08-26 13:17 | disposition home or self-care (01) ==
LOC: PREOP 05:30
PROVIDERS: ATTEND Surgery
DX: Z01.818 Encounter for other preprocedural examination (principal)

== ENCOUNTER 2021-08-29 11:03 | Day surgery (SDC) | payer MEDICARE, MEDICAID ==
[~2021-08-29] VITALS: Ht 160 cm; Wt 43.2 kg
[2021-08-29] VITALS (7 sets, daily range): BP systolic 80–107; BP diastolic 44–84
[~2021-08-29 11:03] MED LIST changes: +ALEN70TA80 PO; +BENZ200C51 PO; +ERGO1250 PO; +HYOS-6 PO; +LIDO40SO MM; +RT-ALBUINH INH; +SILV20CR14 TP; +TOPI25TA10 PO
[2021-08-29] MEDS ORDERED: LACTATED RINGERS 1,000 ML IV PRN (11:30)
[2021-08-29] MEDS ORDERED: ceFAZolin 2 GM IV Premixed 50 ML IV ONE (11:30)
[2021-08-29] MEDS ORDERED: 0.9% SODIUM CHLORIDE PF INJ 20 ML VIAL ONE (11:38)
[2021-08-29] MEDS ORDERED: HEParin (CENTRAL IV FLUSH) 500 UNIT/5 ML SYR ONE (11:38)
[2021-08-29] MEDS ORDERED: LIDOCAINE/EPI 2% 1:100,00 (XYLOCAINE) 20 ML VIAL ONE (12:01)
[2021-08-29] MEDS ORDERED: PROPOFOL INJECTION 50 ML IV ONE (12:38)
[2021-08-29] MEDS ORDERED: MIDAZOLAM 2 MG/2 ML (VERSED) VIAL ONE (12:38)
--- NOTE | 2021-08-29 12:52 | Progress Note-Pre Operative ---
Pre-Operative Progress Note H&P Reviewed The H&P was reviewed, patient examined and no changes noted. Date Seen by Provider: Aug 29, 2021 Time Seen by Provider: 12:30 Date H&P Reviewed: Aug 29, 2021 Time H&P Reviewed: 12:30 Pre-Operative Diagnosis: lung cancer NOEL OLIVEIRA DO Aug 29, 2021 12:52
--- NOTE | 2021-08-29 13:20 | Discharge Inst-Simple/Standard ---
Discharge Inst-Standard Patient Instructions/Follow Up Plan of Care/Instructions/FU: 2 WEEKS TEE Activity as Tolerated: No Discharge Diet: Regular Diet Other Inst to Patient Follow up Appt: Make appointment for 2 week. Instructions: No lifting greater than 10 pounds. No strenuous activity. May shower in 24 hours, no tub bath or soaking. Use incentive spirometer at home as directed. No Smoking Skin/Wound Care: You have special glue over your incision that will fall off on it's own. ICE PACK ON 15 MIN AND OFF 30 MIN AND REPEAT FOR FIRST 48 HOURS. HELPS REDUCE SWELLING AND DISCOMFORT. Symptoms to Report: Appetite Changes, Extremity Discoloration, Numbness/Tingling, Swelling Increased, Bleeding Excessive, Eyesight Changes, Pain Increased, Urine Color Change, Constipation(Persistent), Fever over 101 degree F, Pain/Pressure in chest, Urinating Difficulty, Cough Up/Vomit Blood, Heart Beat Irreg/Pounding, Pain/Pressure in jaw, Vaginal Bleeding Increase, Cramps in feet or legs, Lightheadedness, Pain/Pressure in shoulder, Diarrhea(Persistent), Memory Changes Suddenly, Questions/Concerns, Weight gain consecutive days, Dizziness/Fainting, Nausea/Vomiting, Shortness of Breath, Weight gain over 2 pounds If questions or concerns contact your physician Or seek help at emergency department. NOEL OLIVEIRA DO Aug 29, 2021 13:20
--- NOTE | 2021-08-29 13:23 | Anesthesia-General Post-Op ---
MAC Patient Condition Mental Status/LOC: Same as Preop Cardiovascular: Satisfactory Nausea/Vomiting: Absent Respiratory: Satisfactory Pain: Controlled Complications: Absent Post Op Complications Complications None Follow Up Care/Instructions Patient Instructions None needed. Anesthesiology Discharge Order Discharge Order Patient is doing well, no complaints, stable vital signs, no apparent adverse anesthesia problems. No complications reported per nursing. ARLIN HERRERA CRNA Aug 29, 2021 13:23
[2021-08-29] MEDS ORDERED: ONDANSETRON 4 MG/2 ML (SDV) Z0FRAN IVP PRN (13:30)
--- NOTE | 2021-08-29 13:31 | Progress Note-Post Operative ---
Post-Operative Progess Note Surgeon (s)/Snuff Container Inspector (s) Surgeon NOEL OLIVEIRA DO Snuff Container Inspector: na Pre-Operative Diagnosis lung cancer Post-Operative Diagnosis same Procedure & Operative Findings Date of Procedure 08/29/21 Procedure Performed/Findings PROCEDURE: Right internal jugular port placement using ultrasound guidance. COMPLICATIONS: None. INDICATIONS: The patient is a 61 year old female with lung cancer. Patient understands the risks and benefits of port placement and wished to proceed with the procedure. Consent was signed on the chart. PROCEDURE: The patient was taken to the operating suite, was prepped and draped in the sterile fashion. A surgical pause was performed. Ultrasound was used to locate the internal jugular vein. Once located anesthetic was infiltrated above it. Using micro-access kit, the right internal vein was accessed. Dark nonpulsatile blood was withdrawn. The wire was inserted. Fluoroscopy assured proper placement. The needle was removed. The micro-access dilator was advanced over the wire and the wire was removed. The regular wire was inserted and fluoroscopy assured proper placement. The wire was then secured. Local anesthetic was used to anesthetize from the neck for tunneling down to the right chest and for pocket creation. A 15 blade scalpel was used to make an incision over the right chest. Cautery was used to dissect down to the pectoral fascia. A pocket was created with blunt dissection. The dilator sheath was then advanced over the wire under fluoroscopy and the dilator and wire were removed. The Groshong catheter was inserted through the sheath and the sheath was then removed. The Groshong wire was removed. The catheter was then tunneled to the right chest pocket. Fluoroscopy was used to cut to length and this was then attached to the port which was then placed within the pocket. The port was then accessed without difficulty. It was then flushed with saline and then heparin. The subcutaneous tissues were then reapproximated using 3-0 Vicryl. The areas were then washed and dried. Skin Affix was placed over incision. The insertion point of the neck Skin Affix was placed over the incision. The patient tolerated the procedure well without complication and was taken to recovery room in stable condition. Chest x-ray is pending. Anesthesia Type mac c local Estimated Blood Loss Estimated blood loss (mL): minimal Specimens/Packing Specimens Removed NOEL Mullins DO Aug 29, 2021 13:31
--- NOTE | 2021-08-29 13:32 | Diagnostic Imaging Report ---
INDICATION: Status post port placement. COMPARISON: 07/18/2021. FINDINGS: Single frontal radiographic view of the chest was obtained and demonstrates interval placement of right internal jugular Port-A-Cath. Tip terminates in the mid SVC. Cardiac silhouette and pulmonary vasculature are within normal limits. Lungs are hyperinflated with flattened hemidiaphragms. Centrally lucent lesion with surrounding peripheral spiculation is again identified within the inferolateral margins of the right upper lobe. There is also right upper lobe volume loss. This area has been previously biopsied. IMPRESSION: 1. New right internal jugular Port-A-Cath as described above. 2. Redemonstration of spiculated centrally cavitary lesion of the right upper lobe. 3. Background obstructive pulmonary disease. Dictated by: Dictated on workstation # [id number]
--- NOTE | 2021-08-29 13:40 | Diagnostic Imaging Report ---
INDICATION: Status post Port-A-Cath placement. COMPARISON: None Total fluoroscopy time: 18 seconds Total number of fluoroscopic images saved: 1 FINDINGS: Single intraoperative image intensifier view of the right chest was obtained during Port-A-Cath placement. Images provided show a right internal jugular venous approach. Central tip terminates in the low SVC. Evaluation is suboptimal to assess for pneumothorax given fluoroscopic modality. Please note, interpreting radiologist was not present during the procedure. IMPRESSION: 1. Fluoroscopic guidance provided during Port-A-Cath placement. Dictated by: Dictated on workstation # [id number]
== END 2021-08-29 14:40 | disposition home or self-care (01) ==
LOC: SDC 11:03
PROVIDERS: ATTEND Surgery
DX: C34.90 Malignant neoplasm of unspecified part of unspecified bronchus or lung (principal); I87.2 Venous insufficiency (chronic) (peripheral); F17.210 Nicotine dependence, cigarettes, uncomplicated; Z92.3 Personal history of irradiation; Z99.81 Dependence on supplemental oxygen
CPT/HCPCS: 36561; 71045; 76000; 87081; C1788

== ENCOUNTER 2021-09-02 08:29 | Outpatient (RCR) | payer MEDICARE, MEDICAID ==
[2021-08-16 08:41] LABS: BASOPHILS % (AUTO) 0 % (0-10); EOSINOPHILS # (AUTO) 0.4 10^3/uL (0.0-0.3); EOSINOPHILS % (AUTO) 3 % (0-10); HEMATOCRIT 40 % (35-52); HEMOGLOBIN 11.9 g/dL (11.5-16.0); LYMPHOCYTES # (AUTO) 4.2 10^3/uL (1.0-4.0); LYMPHOCYTES % (AUTO) 39 % (12-44); MEAN CORPUSCULAR HEMOGLOBIN 32 pg (25-34); MEAN CORPUSCULAR HGB CONC 30 g/dL (32-36); MEAN CORPUSCULAR VOLUME 105 fL (80-99); MEAN PLATELET VOLUME 8.6 fL (9.0-12.2); MONOCYTES # (AUTO) 0.7 10^3/uL (0.0-1.0); MONOCYTES % (AUTO) 7 % (0-12); NEUTROPHILS # (AUTO) 5.6 10^3/uL (1.8-7.8); NEUTROPHILS % (AUTO) 51 % (42-75); PLATELET COUNT 398 10^3/uL (130-400); WHITE BLOOD COUNT 10.9 10^3/uL (4.3-11.0)
[2021-08-16 09:04] LABS: ALBUMIN 3.9 GM/DL (3.2-4.5); BILIRUBIN,TOTAL 0.2 MG/DL (0.1-1.0); CREATININE SERUM 0.7 MG/DL (0.60-1.30); POTASSIUM 3.4 MMOL/L (3.6-5.0); TOTAL PROTEIN 8.1 GM/DL (6.4-8.2)
[~2021-09-02] VITALS: Ht 160 cm; Wt 43.1 kg
[~2021-09-02 08:29] MED LIST changes: +CARBOPLATIN IV SCH; +D5W IV SCH; +DEXAMETHASONE SODIUM PHOSPHATE IV SCH; +FAMOTIDINE 20MG/2ML IV (CANCER CTR) IV SCH; +FOSAPREPITANT (CANCER CENTER) 150 MG in NS (IVPB) CANCER CENTER ONLY 150 ML IV SCH; +NS IV 1000 ML (CANCER CTR) IV SCH; +PACLitaxel PROTEIN 130 MG in EMPTY IV BAG (PVC) CANCER CTR 1 EA IV SCH; +PALONOSETRON HCL IV SCH; +PEMBROLIZUMAB 200 MG in NS (IVPB) CANCER CENTER 50 ML IV SCH; +[UNRECOGNIZED DRUG - OTHER] IV SCH; +diphenhydrAMINE 25 MG TAB (BENADRYL) CANCER CENTER PO SCH
== END 2021-09-05 | disposition home or self-care (01) ==
LOC: ONC 08:29
PROVIDERS: ATTEND Internal Medicine Hematology & Oncology
DX: C34.11 Malignant neoplasm of upper lobe, right bronchus or lung (principal); J44.9 Chronic obstructive pulmonary disease, unspecified; Z92.3 Personal history of irradiation
CPT/HCPCS: 36415; 80053; 82378; 85025

== ENCOUNTER → 2021-10-24 | Outpatient (CLI) | payer MEDICARE, MEDICAID ==
[~2021-10-24] MED LIST changes: -CARBOPLATIN IV SCH; +CATHETER FLUSH 10 ML SYR IV PRN; -D5W IV SCH; -DEXAMETHASONE SODIUM PHOSPHATE IV SCH; -FAMOTIDINE 20MG/2ML IV (CANCER CTR) IV SCH; -FOSAPREPITANT (CANCER CENTER) 150 MG in NS (IVPB) CANCER CENTER ONLY 150 ML IV SCH; +IOHEXOL 350 MG/ML 100 ML (OMNIPAQUE 350) VIAL IV ONE; +NS 100 ML (IVPB) BAG IV ONE; -NS IV 1000 ML (CANCER CTR) IV SCH; -PACLitaxel PROTEIN 130 MG in EMPTY IV BAG (PVC) CANCER CTR 1 EA IV SCH; -PALONOSETRON HCL IV SCH; -PEMBROLIZUMAB 200 MG in NS (IVPB) CANCER CENTER 50 ML IV SCH; -[UNRECOGNIZED DRUG - OTHER] IV SCH; -diphenhydrAMINE 25 MG TAB (BENADRYL) CANCER CENTER PO SCH
--- NOTE | 2021-10-24 14:17 | Diagnostic Imaging Report ---
PROCEDURE: CT chest with contrast, CT abdomen with and without contrast. TECHNIQUE: Precontrast acquisitions were acquired through the abdomen. Multiple contiguous axial images were obtained through the chest and abdomen after administration of intravenous contrast. Auto Exposure Controls were utilized during the CT exam to meet ALARA standards for radiation dose reduction. INDICATION: Lung cancer, shortness of air, hemoptysis, right-sided pain. COMPARISON: Exam is compared with study 06/27/2021. FINDINGS: CHEST: Juxtapleural right upper lobe cavitary irregular parenchymal lesion with central gaseous density and no appreciable dependent fluid measured 5.3 cm AP x 4.2 cm transverse, unchanged in size from prior. Parenchymal density and consolidation inferomedial to this process now extends to the right pulmonary hilum where a soft tissue nodule measures 1.6 x 1.1 cm, new or increased. Tiny right pleural effusion has nearly completely resolved. Low-density extrapleural nodules in the right chest lateral to T10 and medial to the right ninth rib at its costovertebral junction are unchanged measuring 1.9 x 1.0 cm and 2.5 x 1.9 cm respectively. No new pleural or extrapleural lesion. No bony destructive process. Mediastinal lymph node stations are unremarkable. The thoracic aorta is patent, nonaneurysmal, and nonacute. Centrilobular emphysematous changes in the lungs are chronic. There is no axillary adenopathy. No appreciable supraclavicular adenopathy. A central venous catheter is in the lower SVC. No pericardial effusion. ABDOMEN: There is an IVC filter in place without caval thrombus. Cysts in the liver with mild post-cholecystectomy biliary ectasia. No pathological ductal dilatation in this patient with previous cholecystectomy. The pancreas is unremarkable, and there is no adrenal mass. Benign left renal cortical cyst is chronic. There is no abdominal ascites. No abdominal mesenteric or retroperitoneal lymphadenopathy. An old L4 superior endplate compression is chronic. No new bony abnormality. IMPRESSION: Cavitary mass in the right upper lobe as well as paravertebral and pericostal extrapleural low-density lesions in the right chest, unchanged. Background centrilobular emphysema. Increasing right perihilar nodule. No other adverse development with near-resolution of a minute residual pleural effusion. Abdominal portion showed no findings of abdominal metastatic disease or acute abnormality. Dictated by: Dictated on workstation # [id number]
== END ==
LOC: RAD 12:47
PROVIDERS: ATTEND Internal Medicine Hematology & Oncology
DX: C34.90 Malignant neoplasm of unspecified part of unspecified bronchus or lung (principal); R91.8 Other nonspecific abnormal finding of lung field; J43.2 Centrilobular emphysema; J90 Pleural effusion, not elsewhere classified
CPT/HCPCS: 71260; 74170

== ENCOUNTER 2021-10-25 10:37 | Outpatient (RCR) | payer MEDICARE, MEDICAID ==
[2021-10-16 15:55] LABS: BASOPHILS % (AUTO) 0 % (0-10); EOSINOPHILS # (AUTO) 0.3 10^3/uL (0.0-0.3); EOSINOPHILS % (AUTO) 4 % (0-10); HEMATOCRIT 41 % (35-52); LYMPHOCYTES # (AUTO) 3.2 10^3/uL (1.0-4.0); LYMPHOCYTES % (AUTO) 42 % (12-44); MEAN CORPUSCULAR HEMOGLOBIN 31 pg (25-34); MEAN CORPUSCULAR HGB CONC 30 g/dL (32-36); MEAN CORPUSCULAR VOLUME 104 fL (80-99); MONOCYTES # (AUTO) 0.5 10^3/uL (0.0-1.0); MONOCYTES % (AUTO) 7 % (0-12); NEUTROPHILS # (AUTO) 3.6 10^3/uL (1.8-7.8); NEUTROPHILS % (AUTO) 47 % (42-75); PLATELET COUNT 384 10^3/uL (130-400); WHITE BLOOD COUNT 7.6 10^3/uL (4.3-11.0)
[2021-10-16 16:08] LABS: ALBUMIN 3.6 GM/DL (3.2-4.5); POTASSIUM 4.6 MMOL/L (3.6-5.0)
[2021-10-16 16:10] LABS: CALCIUM 9.7 MG/DL (8.5-10.1)
[2021-10-16 16:11] LABS: TOTAL PROTEIN 7.7 GM/DL (6.4-8.2)
[2021-10-16 16:13] LABS: BILIRUBIN,TOTAL 0.1 MG/DL (0.1-1.0)
[2021-10-16 16:15] LABS: CREATININE SERUM 0.69 MG/DL (0.60-1.30)
[~2021-10-25] VITALS: Ht 160 cm; Wt 43.1 kg
[~2021-10-25 10:37] MED LIST changes: +CARBOPLATIN IV SCH; -CATHETER FLUSH 10 ML SYR IV PRN; +D5W IV SCH; +FAMOTIDINE 20MG/2ML IV (PEPCID) IV ONE; +FOSAPREPITANT (CANCER CENTER) 150 MG in NS (IVPB) CANCER CENTER ONLY 150 ML IV SCH; +HEParin (CENTRAL IV FLUSH) 500 UNIT/5 ML SYR IV PRN; -IOHEXOL 350 MG/ML 100 ML (OMNIPAQUE 350) VIAL IV ONE; -NS 100 ML (IVPB) BAG IV ONE; +NS IV 1000 ML (CANCER CTR) IV SCH; +PACLitaxel PROTEIN 130 MG in EMPTY IV BAG (PVC) CANCER CTR 1 EA IV SCH; +PALONOSETRON HCL 0.25 MG, dexAMETHasone INJECTION 10 MG in NS (IVPB) 50 ML IV SCH; +PEMBROLIZUMAB 200 MG in NS (IVPB) 50 ML IV SCH; +diphenhydrAMINE 25 MG TAB (BENADRYL) PO SCH
[2021-11-07 11:44] LABS: BASOPHILS % (AUTO) 0 % (0-10); EOSINOPHILS # (AUTO) 0.4 10^3/uL (0.0-0.3); EOSINOPHILS % (AUTO) 4 % (0-10); HEMATOCRIT 36 % (35-52); LYMPHOCYTES # (AUTO) 4.5 10^3/uL (1.0-4.0); LYMPHOCYTES % (AUTO) 43 % (12-44); MEAN CORPUSCULAR HEMOGLOBIN 31 pg (25-34); MEAN CORPUSCULAR HGB CONC 30 g/dL (32-36); MEAN CORPUSCULAR VOLUME 103 fL (80-99); MEAN PLATELET VOLUME 8.9 fL (9.0-12.2); MONOCYTES # (AUTO) 0.8 10^3/uL (0.0-1.0); MONOCYTES % (AUTO) 8 % (0-12); NEUTROPHILS # (AUTO) 4.6 10^3/uL (1.8-7.8); NEUTROPHILS % (AUTO) 45 % (42-75); PLATELET COUNT 376 10^3/uL (130-400); WHITE BLOOD COUNT 10.3 10^3/uL (4.3-11.0)
[2021-11-07 11:56] LABS: ALBUMIN 3.6 GM/DL (3.2-4.5); POTASSIUM 3.8 MMOL/L (3.6-5.0)
[2021-11-07 11:57] LABS: CALCIUM 8.8 MG/DL (8.5-10.1)
[2021-11-07 11:58] LABS: TOTAL PROTEIN 7.3 GM/DL (6.4-8.2)
[2021-11-07 12:00] LABS: BILIRUBIN,TOTAL 0.2 MG/DL (0.1-1.0)
[2021-11-07 12:02] LABS: CREATININE SERUM 0.7 MG/DL (0.60-1.30)
== END 2021-11-05 | disposition home or self-care (01) ==
LOC: ONC 10:37
PROVIDERS: ATTEND Internal Medicine Hematology & Oncology
DX: C34.11 Malignant neoplasm of upper lobe, right bronchus or lung (principal); J44.9 Chronic obstructive pulmonary disease, unspecified; Z92.3 Personal history of irradiation
CPT/HCPCS: 36415; 80053; 82378; 85025

== ENCOUNTER → 2021-12-05 | Outpatient (RCR) | payer MEDICARE, MEDICAID ==
[2021-11-07 11:44] LABS: BASOPHILS % (AUTO) 0 % (0-10); EOSINOPHILS # (AUTO) 0.4 10^3/uL (0.0-0.3); EOSINOPHILS % (AUTO) 4 % (0-10); HEMATOCRIT 36 % (35-52); LYMPHOCYTES # (AUTO) 4.5 10^3/uL (1.0-4.0); LYMPHOCYTES % (AUTO) 43 % (12-44); MEAN CORPUSCULAR HEMOGLOBIN 31 pg (25-34); MEAN CORPUSCULAR HGB CONC 30 g/dL (32-36); MEAN CORPUSCULAR VOLUME 103 fL (80-99); MEAN PLATELET VOLUME 8.9 fL (9.0-12.2); MONOCYTES # (AUTO) 0.8 10^3/uL (0.0-1.0); MONOCYTES % (AUTO) 8 % (0-12); NEUTROPHILS # (AUTO) 4.6 10^3/uL (1.8-7.8); NEUTROPHILS % (AUTO) 45 % (42-75); PLATELET COUNT 376 10^3/uL (130-400); WHITE BLOOD COUNT 10.3 10^3/uL (4.3-11.0)
[2021-11-07 11:56] LABS: ALBUMIN 3.6 GM/DL (3.2-4.5); POTASSIUM 3.8 MMOL/L (3.6-5.0)
[2021-11-07 11:57] LABS: CALCIUM 8.8 MG/DL (8.5-10.1)
[2021-11-07 11:58] LABS: TOTAL PROTEIN 7.3 GM/DL (6.4-8.2)
[2021-11-07 12:00] LABS: BILIRUBIN,TOTAL 0.2 MG/DL (0.1-1.0)
[2021-11-07 12:02] LABS: CREATININE SERUM 0.7 MG/DL (0.60-1.30)
[2021-11-13 11:11] LABS: BASOPHILS % (AUTO) 0 % (0-10); EOSINOPHILS # (AUTO) 0.3 10^3/uL (0.0-0.3); EOSINOPHILS % (AUTO) 3 % (0-10); HEMATOCRIT 35 % (35-52); HEMOGLOBIN 10.6 g/dL (11.5-16.0); LYMPHOCYTES # (AUTO) 4.4 10^3/uL (1.0-4.0); LYMPHOCYTES % (AUTO) 54 % (12-44); MEAN CORPUSCULAR HEMOGLOBIN 31 pg (25-34); MEAN CORPUSCULAR HGB CONC 31 g/dL (32-36); MEAN CORPUSCULAR VOLUME 103 fL (80-99); MEAN PLATELET VOLUME 8.9 fL (9.0-12.2); MONOCYTES # (AUTO) 0.5 10^3/uL (0.0-1.0); MONOCYTES % (AUTO) 6 % (0-12); NEUTROPHILS # (AUTO) 3.1 10^3/uL (1.8-7.8); NEUTROPHILS % (AUTO) 37 % (42-75); PLATELET COUNT 371 10^3/uL (130-400); WHITE BLOOD COUNT 8.3 10^3/uL (4.3-11.0)
[2021-11-13 11:34] LABS: ALBUMIN 3.7 GM/DL (3.2-4.5)
[2021-11-13 11:35] LABS: POTASSIUM 3.6 MMOL/L (3.6-5.0)
[2021-11-13 11:36] LABS: CALCIUM 9.1 MG/DL (8.5-10.1)
[2021-11-13 11:37] LABS: TOTAL PROTEIN 7.3 GM/DL (6.4-8.2)
[2021-11-13 11:39] LABS: BILIRUBIN,TOTAL 0.2 MG/DL (0.1-1.0)
[2021-11-13 11:41] LABS: CREATININE SERUM 0.74 MG/DL (0.60-1.30)
[2021-11-28 11:24] LABS: BASOPHILS % (AUTO) 0 % (0-10); EOSINOPHILS # (AUTO) 0.1 10^3/uL (0.0-0.3); EOSINOPHILS % (AUTO) 2 % (0-10); HEMATOCRIT 30 % (35-52); LYMPHOCYTES # (AUTO) 3.4 10^3/uL (1.0-4.0); LYMPHOCYTES % (AUTO) 63 % (12-44); MEAN CORPUSCULAR HEMOGLOBIN 32 pg (25-34); MEAN CORPUSCULAR HGB CONC 31 g/dL (32-36); MEAN CORPUSCULAR VOLUME 104 fL (80-99); MEAN PLATELET VOLUME 8.8 fL (9.0-12.2); MONOCYTES # (AUTO) 0.5 10^3/uL (0.0-1.0); MONOCYTES % (AUTO) 10 % (0-12); NEUTROPHILS # (AUTO) 1.4 10^3/uL (1.8-7.8); NEUTROPHILS % (AUTO) 25 % (42-75); PLATELET COUNT 226 10^3/uL (130-400); WHITE BLOOD COUNT 5.4 10^3/uL (4.3-11.0)
[2021-11-28 11:41] LABS: ALANINE AMINOTRANSFERASE < 6 U/L (0-55); ALBUMIN 3.4 GM/DL (3.2-4.5); ALKALINE PHOSPHATASE 79 U/L (40-136); BILIRUBIN,TOTAL 0.1 MG/DL (0.1-1.0); BUN/CREATININE RATIO 23; CALCIUM 8.9 MG/DL (8.5-10.1); CARBON DIOXIDE 29 MMOL/L (21-32); CHLORIDE 106 MMOL/L (98-107); CREATININE SERUM 0.65 MG/DL (0.60-1.30); GFR ESTIMATED 100; GLUCOSE 103 MG/DL (70-105); POTASSIUM 3.6 MMOL/L (3.6-5.0); SODIUM 142 MMOL/L (135-145); TOTAL PROTEIN 6.9 GM/DL (6.4-8.2)
[~2021-12-05] MED LIST changes: +CTR IV SCH; -FAMOTIDINE 20MG/2ML IV (PEPCID) IV ONE; +FAMOTIDINE 20MG/2ML IV (PEPCID) ONE; +PACLITAXEL PROTEIN BOUND IV SCH
[2021-12-05 11:33] LABS: BASOPHILS % (AUTO) 0 % (0-10); HEMOGLOBIN 9.9 g/dL (11.5-16.0); MEAN CORPUSCULAR VOLUME 103 fL (80-99); NEUTROPHILS % (AUTO) 30 % (42-75)
[2021-12-05 11:34] LABS: EOSINOPHILS # (AUTO) 0.1 10^3/uL (0.0-0.3); EOSINOPHILS % (AUTO) 3 % (0-10); HEMATOCRIT 32 % (35-52); LYMPHOCYTES # (AUTO) 3.1 10^3/uL (1.0-4.0); LYMPHOCYTES % (AUTO) 60 % (12-44); MEAN CORPUSCULAR HEMOGLOBIN 32 pg (25-34); MEAN CORPUSCULAR HGB CONC 31 g/dL (32-36); MEAN PLATELET VOLUME 9.3 fL (9.0-12.2); MONOCYTES # (AUTO) 0.3 10^3/uL (0.0-1.0); MONOCYTES % (AUTO) 6 % (0-12); NEUTROPHILS # (AUTO) 1.6 10^3/uL (1.8-7.8); PLATELET COUNT 135 10^3/uL (130-400); WHITE BLOOD COUNT 5.2 10^3/uL (4.3-11.0)
[2021-12-05 12:03] LABS: ALBUMIN 3.5 GM/DL (3.2-4.5); BILIRUBIN,TOTAL 0.2 MG/DL (0.1-1.0); CALCIUM 9.2 MG/DL (8.5-10.1); CREATININE SERUM 0.69 MG/DL (0.60-1.30); POTASSIUM 3.7 MMOL/L (3.6-5.0)
== END | disposition home or self-care (01) ==
LOC: ONC 11-07 10:52
PROVIDERS: ATTEND Internal Medicine Hematology & Oncology
DX: Z51.11 Encounter for antineoplastic chemotherapy (principal); Z45.2 Encounter for adjustment and management of vascular access device; C34.11 Malignant neoplasm of upper lobe, right bronchus or lung; J44.9 Chronic obstructive pulmonary disease, unspecified; Z92.3 Personal history of irradiation
CPT/HCPCS: 36591; 80053; 82378; 85025; 96360; 96361; 96367; 96375; 96413; 96417

== ENCOUNTER 2021-12-26 13:02 | Outpatient (RCR) | payer MEDICARE, MEDICAID ==
[~2021-12-26 13:02] MED LIST changes: -CARBOPLATIN IV SCH; -CTR IV SCH; -D5W IV SCH; -FAMOTIDINE 20MG/2ML IV (PEPCID) ONE; -FOSAPREPITANT (CANCER CENTER) 150 MG in NS (IVPB) CANCER CENTER ONLY 150 ML IV SCH; -PACLITAXEL PROTEIN BOUND IV SCH; -PACLitaxel PROTEIN 130 MG in EMPTY IV BAG (PVC) CANCER CTR 1 EA IV SCH; -PALONOSETRON HCL 0.25 MG, dexAMETHasone INJECTION 10 MG in NS (IVPB) 50 ML IV SCH; -diphenhydrAMINE 25 MG TAB (BENADRYL) PO SCH
[2021-12-26 13:37] LABS: BASOPHILS % (AUTO) 0 % (0-10); EOSINOPHILS # (AUTO) 0.1 10^3/uL (0.0-0.3); EOSINOPHILS % (AUTO) 2 % (0-10); HEMATOCRIT 32 % (35-52); HEMOGLOBIN 9.9 g/dL (11.5-16.0); LYMPHOCYTES # (AUTO) 4.5 10^3/uL (1.0-4.0); LYMPHOCYTES % (AUTO) 68 % (12-44); MEAN CORPUSCULAR HEMOGLOBIN 33 pg (25-34); MEAN CORPUSCULAR HGB CONC 31 g/dL (32-36); MEAN CORPUSCULAR VOLUME 107 fL (80-99); MEAN PLATELET VOLUME 9.5 fL (9.0-12.2); MONOCYTES # (AUTO) 0.7 10^3/uL (0.0-1.0); MONOCYTES % (AUTO) 10 % (0-12); NEUTROPHILS # (AUTO) 1.4 10^3/uL (1.8-7.8); NEUTROPHILS % (AUTO) 20 % (42-75); PLATELET COUNT 297 10^3/uL (130-400); WHITE BLOOD COUNT 6.7 10^3/uL (4.3-11.0)
[2021-12-26 14:11] LABS: ALBUMIN 3.9 GM/DL (3.2-4.5); BILIRUBIN,TOTAL 0.1 MG/DL (0.1-1.0); CALCIUM 9.5 MG/DL (8.5-10.1); CREATININE SERUM 0.73 MG/DL (0.60-1.30); POTASSIUM 3.9 MMOL/L (3.6-5.0); TOTAL PROTEIN 7.3 GM/DL (6.4-8.2)
== END 2022-01-05 | disposition home or self-care (01) ==
LOC: ONC 13:02
PROVIDERS: ATTEND Internal Medicine Hematology & Oncology
DX: Z51.11 Encounter for antineoplastic chemotherapy (principal); Z45.2 Encounter for adjustment and management of vascular access device; C34.11 Malignant neoplasm of upper lobe, right bronchus or lung; J44.9 Chronic obstructive pulmonary disease, unspecified; D64.9 Anemia, unspecified; Z92.3 Personal history of irradiation; Z72.0 Tobacco use
CPT/HCPCS: 36591; 80053; 84443; 85025; 96413

== ENCOUNTER 2022-01-16 13:18 | Outpatient (RCR) | payer MEDICARE, MEDICAID ==
[2022-01-16 13:47] LABS: BASOPHILS % (AUTO) 0 % (0-10); EOSINOPHILS # (AUTO) 0.3 10^3/uL (0.0-0.3); EOSINOPHILS % (AUTO) 4 % (0-10); HEMATOCRIT 34 % (35-52); HEMOGLOBIN 10.7 g/dL (11.5-16.0); LYMPHOCYTES % (AUTO) 49 % (12-44); MEAN CORPUSCULAR HEMOGLOBIN 33 pg (25-34); MEAN CORPUSCULAR HGB CONC 31 g/dL (32-36); MEAN CORPUSCULAR VOLUME 108 fL (80-99); MEAN PLATELET VOLUME 9.3 fL (9.0-12.2); MONOCYTES # (AUTO) 0.7 10^3/uL (0.0-1.0); MONOCYTES % (AUTO) 8 % (0-12); NEUTROPHILS # (AUTO) 3.1 10^3/uL (1.8-7.8); NEUTROPHILS % (AUTO) 38 % (42-75); PLATELET COUNT 315 10^3/uL (130-400); WHITE BLOOD COUNT 8.1 10^3/uL (4.3-11.0)
[2022-01-16 14:11] LABS: ALBUMIN 3.9 GM/DL (3.2-4.5); BILIRUBIN,TOTAL 0.2 MG/DL (0.1-1.0); CALCIUM 9.2 MG/DL (8.5-10.1); CREATININE SERUM 0.72 MG/DL (0.60-1.30); POTASSIUM 4.1 MMOL/L (3.6-5.0); TOTAL PROTEIN 7.1 GM/DL (6.4-8.2)
== END 2022-02-05 14:02 | disposition home or self-care (01) ==
LOC: ONC 13:18
PROVIDERS: ATTEND Internal Medicine Hematology & Oncology
DX: Z51.11 Encounter for antineoplastic chemotherapy (principal); Z45.2 Encounter for adjustment and management of vascular access device; C34.90 Malignant neoplasm of unspecified part of unspecified bronchus or lung; J44.9 Chronic obstructive pulmonary disease, unspecified; D64.9 Anemia, unspecified
CPT/HCPCS: 80053; 84443; 85025; 96360; 96413; G0463; 36591

== ENCOUNTER → 2022-01-29 | Outpatient (CLI) | payer MEDICARE, MEDICAID ==
[~2022-01-29] MED LIST changes: -HEParin (CENTRAL IV FLUSH) 500 UNIT/5 ML SYR IV PRN; +HOLD METFORMIN - RECEIVED CONTRAST 20 ML VIAL IV SCH; +IOHEXOL 350 MG/ML 100 ML (OMNIPAQUE 350) VIAL IV ONE; +NS 100 ML (IVPB) BAG IV ONE; -NS IV 1000 ML (CANCER CTR) IV SCH; -PEMBROLIZUMAB 200 MG in NS (IVPB) 50 ML IV SCH
--- NOTE | 2022-01-29 11:34 | Diagnostic Imaging Report ---
EXAMINATION: CT CHEST WITH CONTRAST. TECHNIQUE: Multiple contiguous axial images were obtained through the chest with the use of intravenous contrast. All CT scans use one or more of the following dose optimizing techniques: automated exposure control, MA and/or KvP adjustment based on a patient size and exam type, or iterative reconstruction. INDICATION: Malignant neoplasm of the right lung. COMPARISON: 10/24/2021. FINDINGS: Lungs and airway: Severe emphysema is again noted. The right upper lobe cavitary lesion has mildly decreased in size now measuring 3.7 x 2.8 cm (previously 4.7 x 3.8 cm). The nodularity along the right hilum has diminished. No abnormal thickening or nodularity of the cavitary wall has developed. Retained secretions are noted in the trachea. No new pulmonary mass or suspicious nodule. There is no pneumonia or edema. Pleura: No pleural effusion or pneumothorax. Heart and mediastinum: No supraclavicular or axillary lymphadenopathy. No mediastinal lymphadenopathy. No hilar or juxtaphrenic lymphadenopathy. Heart is normal in size without pericardial effusion. Normal caliber thoracic aorta. Stable right IJ Port-A-Cath. Upper abdomen: No acute abnormality in the upper abdomen. IVC filter is again noted. Musculoskeletal: The extrapleural low-attenuation cystic lesion in the right paravertebral T9-T10 level has resolved. The other intercostal/paravertebral lesion on the right at T8-T9 is stable measuring 2.5 x 1.5 cm. No new extrapleural masses. IMPRESSION: 1. Favorable response to treatment as the right upper lobe cavitary mass has decreased in size. 2. The right paravertebral cystic mass has resolved at T9-T10. 3. The other intercostal/paravertebral mass at T8-T9 is stable. Dictated by: Dictated on workstation # [id number]
== END ==
LOC: RAD 10:00
PROVIDERS: ATTEND Pediatrics
DX: C34.91 Malignant neoplasm of unspecified part of right bronchus or lung (principal); R64 Cachexia; R22.2 Localized swelling, mass and lump, trunk
CPT/HCPCS: 71260

== ENCOUNTER → 2022-02-28 | Outpatient (CLI) | payer OTHER, MEDICAID ==
[~2022-02-28] MED LIST changes: +CATHETER FLUSH 10 ML SYR IV PRN
--- NOTE | 2022-02-28 13:39 | Diagnostic Imaging Report ---
PROCEDURE: CT chest, abdomen, and pelvis with contrast. TECHNIQUE: Multiple contiguous axial images were obtained through the chest, abdomen, and pelvis after the administration of intravenous contrast. Auto Exposure Controls were utilized during the CT exam to meet ALARA standards for radiation dose reduction. INDICATION: Malignant neoplasm of the lung with shortness of breath and back pain. Comparison is made with prior CT from 01/29/2022. CT CHEST: Right chest wall port has the tip in SVC. No axillary lymphadenopathy is detected. No mediastinal or hilar lymphadenopathy is identified. No pericardial or pleural fluid is detected. The low-density ovoid paravertebral lesion at the level of T9-T10 appears to be fairly stable at 2.8 x 1.7 cm compared with one or 2.5 x 1.6 cm. Cavitary mass right upper lobe measures 4.0 x 2.5 cm compared with 3.8 x 2.9 cm. This appears be stable when measured by the same technique. Soft tissue extends towards the right hilum, similar to prior exam. There are significant emphysematous changes throughout both lungs. No new pulmonary mass is identified. IMPRESSION: Stable CT chest since exam from 01/29/2022. CT ABDOMEN AND PELVIS: Cystic lesions within the liver appear stable. Gallbladder surgically absent. No biliary ductal dilatation. Pancreas is unremarkable. Spleen has been surgically removed. No adrenal mass identified. Cortical lesion in the upper pole of the left kidney appears stable. There is a filter in the IVC. Aorta is nonaneurysmal. Moderate stool throughout the colon is noted. Small bowel loops are normal caliber. There is no obstruction. No free fluid or fluid collection is seen. Bladder appears decompressed. Old fracture deformities of the pelvis are noted. There are postop changes lower lumbar spine and sacrum. IMPRESSION: 1. Stable CT abdomen and pelvis since 10/24/2021. There is no evidence of abdominal or pelvic lymphadenopathy or metastatic disease. 2. Hepatic and renal cysts. Dictated by: Dictated on workstation # [id number]
--- NOTE | 2022-02-28 17:00 | Diagnostic Imaging Report ---
CLINICAL INDICATION: Patient with history of lung cancer. Patient with sinus drainage and infection of upper gums. Immunotherapy. EXAM: Axial CT scan of the maxillofacial structures without IV contrast. Coronal and sagittal reformations were performed. Auto Exposure Controls were utilized during the CT exam to meet ALARA standards for radiation dose reduction. COMPARISON: None. FINDINGS: PARANASAL SINUSES: FRONTAL: Unremarkable. ETHMOID: Unremarkable. MAXILLARY: Unremarkable. SPHENOID: Unremarkable. OTHER PARANASAL SINUS FINDINGS: None. NASAL SEPTUM: There is 5 mm of leftward nasal septal deviation seen anteriorly. VISUALIZED TEMPORAL BONE STRUCTURES: Unremarkable. BONY STRUCTURES: Patient is edentulous. There is no bony erosive or destructive process. Retained or impacted tooth is seen in the posterior maxillary right molar region. Torus palatinus and torus maxillaris interna is noted. There is no significant head and neck soft tissue abnormality. There is no lymphadenopathy. There is no fluid collection or abscess. There is no fat stranding. EXTRACRANIAL SOFT TISSUE/ ORBITS: Unremarkable. Limited visualization of intracranial structures, orbits and globes are unremarkable. IMPRESSION: 1: There is no neck soft tissue fluid collection, abscess, lymphadenopathy or inflammatory process. There is no bony erosive process. 2: Paranasal sinuses are clear. 3: Patient is edentulous. 4: There is mild leftward nasal septal deviation. Dictated by: Dictated on workstation # [id number]
== END ==
LOC: RAD 12:15
PROVIDERS: ATTEND Internal Medicine Hematology & Oncology
DX: K76.89 Other specified diseases of liver (principal); N28.1 Cyst of kidney, acquired; J34.2 Deviated nasal septum; C34.90 Malignant neoplasm of unspecified part of unspecified bronchus or lung
CPT/HCPCS: 70487; 71260; 74177

== ENCOUNTER 2022-03-06 11:38 | Outpatient (RCR) | payer MEDICARE, MEDICAID ==
[2022-02-06 14:40] LABS: BASOPHILS % (AUTO) 0 % (0-10); EOSINOPHILS # (AUTO) 0.7 10^3/uL (0.0-0.3); EOSINOPHILS % (AUTO) 8 % (0-10); HEMATOCRIT 35 % (35-52); LYMPHOCYTES # (AUTO) 4.4 10^3/uL (1.0-4.0); LYMPHOCYTES % (AUTO) 51 % (12-44); MEAN CORPUSCULAR HEMOGLOBIN 33 pg (25-34); MEAN CORPUSCULAR HGB CONC 31 g/dL (32-36); MEAN CORPUSCULAR VOLUME 107 fL (80-99); MEAN PLATELET VOLUME 9.1 fL (9.0-12.2); MONOCYTES # (AUTO) 0.7 10^3/uL (0.0-1.0); MONOCYTES % (AUTO) 8 % (0-12); NEUTROPHILS # (AUTO) 2.9 10^3/uL (1.8-7.8); NEUTROPHILS % (AUTO) 33 % (42-75); PLATELET COUNT 252 10^3/uL (130-400); WHITE BLOOD COUNT 8.8 10^3/uL (4.3-11.0)
[2022-02-06 15:01] LABS: ALBUMIN 3.8 GM/DL (3.2-4.5); BILIRUBIN,TOTAL 0.2 MG/DL (0.1-1.0); CALCIUM 9.4 MG/DL (8.5-10.1); CREATININE SERUM 0.7 MG/DL (0.60-1.30); POTASSIUM 4.3 MMOL/L (3.6-5.0); TOTAL PROTEIN 7.2 GM/DL (6.4-8.2)
[2022-02-27 10:33] LABS: BASOPHILS % (AUTO) 0 % (0-10); EOSINOPHILS # (AUTO) 0.5 10^3/uL (0.0-0.3); EOSINOPHILS % (AUTO) 7 % (0-10); HEMATOCRIT 34 % (35-52); HEMOGLOBIN 10.4 g/dL (11.5-16.0); LYMPHOCYTES # (AUTO) 3.9 10^3/uL (1.0-4.0); LYMPHOCYTES % (AUTO) 54 % (12-44); MEAN CORPUSCULAR HEMOGLOBIN 33 pg (25-34); MEAN CORPUSCULAR HGB CONC 31 g/dL (32-36); MEAN CORPUSCULAR VOLUME 106 fL (80-99); MEAN PLATELET VOLUME 8.7 fL (9.0-12.2); MONOCYTES # (AUTO) 0.7 10^3/uL (0.0-1.0); MONOCYTES % (AUTO) 10 % (0-12); NEUTROPHILS # (AUTO) 2.1 10^3/uL (1.8-7.8); NEUTROPHILS % (AUTO) 30 % (42-75); PLATELET COUNT 282 10^3/uL (130-400); WHITE BLOOD COUNT 7.2 10^3/uL (4.3-11.0)
[2022-02-27 10:53] LABS: ALBUMIN 3.6 GM/DL (3.2-4.5); BILIRUBIN,TOTAL 0.2 MG/DL (0.1-1.0); CALCIUM 8.8 MG/DL (8.5-10.1); CREATININE SERUM 0.72 MG/DL (0.60-1.30); POTASSIUM 3.8 MMOL/L (3.6-5.0)
[~2022-03-06 11:38] MED LIST changes: -CATHETER FLUSH 10 ML SYR IV PRN; +HEParin (CENTRAL IV FLUSH) 500 UNIT/5 ML SYR IV PRN; -HOLD METFORMIN - RECEIVED CONTRAST 20 ML VIAL IV SCH; -IOHEXOL 350 MG/ML 100 ML (OMNIPAQUE 350) VIAL IV ONE; +NS (IVPB) 250 ML ONE; -NS 100 ML (IVPB) BAG IV ONE; +NS IV 1000 ML (CANCER CTR) IV SCH; +PEMBROLIZUMAB 200 MG in NS (IVPB) 50 ML IV SCH
[2022-03-06] MEDS ORDERED: NS (IVPB) 250 ML ONE (12:02)
[2022-03-06 12:16] LABS: BASOPHILS % (AUTO) 0 % (0-10); EOSINOPHILS # (AUTO) 0.5 10^3/uL (0.0-0.3); EOSINOPHILS % (AUTO) 6 % (0-10); HEMATOCRIT 33 % (35-52); HEMOGLOBIN 10.3 g/dL (11.5-16.0); LYMPHOCYTES # (AUTO) 3.8 10^3/uL (1.0-4.0); LYMPHOCYTES % (AUTO) 48 % (12-44); MEAN CORPUSCULAR HEMOGLOBIN 33 pg (25-34); MEAN CORPUSCULAR HGB CONC 31 g/dL (32-36); MEAN CORPUSCULAR VOLUME 105 fL (80-99); MEAN PLATELET VOLUME 8.8 fL (9.0-12.2); MONOCYTES # (AUTO) 0.8 10^3/uL (0.0-1.0); MONOCYTES % (AUTO) 10 % (0-12); NEUTROPHILS # (AUTO) 2.8 10^3/uL (1.8-7.8); NEUTROPHILS % (AUTO) 36 % (42-75); PLATELET COUNT 273 10^3/uL (130-400); WHITE BLOOD COUNT 7.8 10^3/uL (4.3-11.0)
[2022-03-06 12:45] LABS: ALBUMIN 3.5 GM/DL (3.2-4.5); BILIRUBIN,TOTAL 0.2 MG/DL (0.1-1.0); CALCIUM 8.9 MG/DL (8.5-10.1); CREATININE SERUM 0.74 MG/DL (0.60-1.30); POTASSIUM 4.2 MMOL/L (3.6-5.0); TOTAL PROTEIN 6.6 GM/DL (6.4-8.2)
== END 2022-03-07 | disposition home or self-care (01) ==
LOC: ONC 11:38
PROVIDERS: ATTEND Internal Medicine Hematology & Oncology
DX: Z51.11 Encounter for antineoplastic chemotherapy (principal); Z45.2 Encounter for adjustment and management of vascular access device; C34.90 Malignant neoplasm of unspecified part of unspecified bronchus or lung; J44.9 Chronic obstructive pulmonary disease, unspecified; D64.9 Anemia, unspecified
CPT/HCPCS: 80053; 82306; 82378; 85025; 96413; G0463; 36591; 96523; 99213

== ENCOUNTER 2022-03-27 13:45 | Outpatient (RCR) | payer MEDICARE, MEDICAID ==
[~2022-03-27 13:45] MED LIST changes: +NS (IVPB) 250 ML IV SCH; -NS (IVPB) 250 ML ONE
[2022-03-27 14:21] LABS: BASOPHILS % (AUTO) 0 % (0-10); EOSINOPHILS # (AUTO) 0.4 10^3/uL (0.0-0.3); EOSINOPHILS % (AUTO) 5 % (0-10); HEMATOCRIT 33 % (35-52); HEMOGLOBIN 10.1 g/dL (11.5-16.0); LYMPHOCYTES # (AUTO) 3.9 10^3/uL (1.0-4.0); LYMPHOCYTES % (AUTO) 48 % (12-44); MEAN CORPUSCULAR HEMOGLOBIN 32 pg (25-34); MEAN CORPUSCULAR HGB CONC 31 g/dL (32-36); MEAN CORPUSCULAR VOLUME 105 fL (80-99); MEAN PLATELET VOLUME 8.9 fL (9.0-12.2); MONOCYTES # (AUTO) 0.7 10^3/uL (0.0-1.0); MONOCYTES % (AUTO) 8 % (0-12); NEUTROPHILS # (AUTO) 3.1 10^3/uL (1.8-7.8); NEUTROPHILS % (AUTO) 38 % (42-75); PLATELET COUNT 297 10^3/uL (130-400); WHITE BLOOD COUNT 8.1 10^3/uL (4.3-11.0)
[2022-03-27 14:37] LABS: ALBUMIN 3.6 GM/DL (3.2-4.5); POTASSIUM 4.1 MMOL/L (3.6-5.0)
[2022-03-27 14:38] LABS: CALCIUM 8.8 MG/DL (8.5-10.1)
[2022-03-27 14:39] LABS: TOTAL PROTEIN 6.6 GM/DL (6.4-8.2)
[2022-03-27 14:41] LABS: BILIRUBIN,TOTAL 0.2 MG/DL (0.1-1.0)
[2022-03-27 14:43] LABS: CREATININE SERUM 0.68 MG/DL (0.60-1.30)
== END 2022-04-07 | disposition home or self-care (01) ==
LOC: ONC 13:45
PROVIDERS: ATTEND Internal Medicine Hematology & Oncology
DX: Z51.11 Encounter for antineoplastic chemotherapy (principal); Z45.2 Encounter for adjustment and management of vascular access device; C34.90 Malignant neoplasm of unspecified part of unspecified bronchus or lung; J44.9 Chronic obstructive pulmonary disease, unspecified; D64.9 Anemia, unspecified
CPT/HCPCS: 36591; 80053; 82378; 85025; 96413

== ENCOUNTER 2022-04-24 14:07 | Outpatient (RCR) | payer MEDICARE, MEDICAID ==
[2022-04-24 14:45] LABS: BASOPHILS % (AUTO) 0 % (0-10); EOSINOPHILS # (AUTO) 0.4 10^3/uL (0.0-0.3); EOSINOPHILS % (AUTO) 5 % (0-10); HEMATOCRIT 36 % (35-52); HEMOGLOBIN 11.2 g/dL (11.5-16.0); LYMPHOCYTES # (AUTO) 4.2 10^3/uL (1.0-4.0); LYMPHOCYTES % (AUTO) 48 % (12-44); MEAN CORPUSCULAR HEMOGLOBIN 32 pg (25-34); MEAN CORPUSCULAR HGB CONC 31 g/dL (32-36); MEAN CORPUSCULAR VOLUME 103 fL (80-99); MEAN PLATELET VOLUME 8.8 fL (9.0-12.2); MONOCYTES # (AUTO) 0.6 10^3/uL (0.0-1.0); MONOCYTES % (AUTO) 7 % (0-12); NEUTROPHILS # (AUTO) 3.4 10^3/uL (1.8-7.8); NEUTROPHILS % (AUTO) 39 % (42-75); PLATELET COUNT 302 10^3/uL (130-400); WHITE BLOOD COUNT 8.7 10^3/uL (4.3-11.0)
[2022-04-24 15:09] LABS: ALBUMIN 3.8 GM/DL (3.2-4.5); BILIRUBIN,TOTAL 0.2 MG/DL (0.1-1.0); CALCIUM 9.1 MG/DL (8.5-10.1); CREATININE SERUM 0.68 MG/DL (0.60-1.30); POTASSIUM 4.2 MMOL/L (3.6-5.0); TOTAL PROTEIN 7.4 GM/DL (6.4-8.2)
== END 2022-05-07 | disposition home or self-care (01) ==
LOC: ONC 14:07
PROVIDERS: ATTEND Internal Medicine Hematology & Oncology
DX: Z51.11 Encounter for antineoplastic chemotherapy (principal); Z45.2 Encounter for adjustment and management of vascular access device; C34.90 Malignant neoplasm of unspecified part of unspecified bronchus or lung; D64.9 Anemia, unspecified; J44.9 Chronic obstructive pulmonary disease, unspecified
CPT/HCPCS: 80053; 82378; 85025; 96413; G0463; 36591

== ENCOUNTER 2022-06-20 12:57 | Outpatient (RCR) | payer MEDICARE, MEDICAID | END 2022-07-08 | disposition home or self-care (01) | LOC: ONC 12:57 | PROVIDERS: ATTEND Internal Medicine Hematology & Oncology | DX: C34.90 Malignant neoplasm of unspecified part of unspecified bronchus or lung (principal); D64.9 Anemia, unspecified; J44.9 Chronic obstructive pulmonary disease, unspecified; R51.9 Headache, unspecified; G89.3 Neoplasm related pain (acute) (chronic); R53.83 Other fatigue; Z72.0 Tobacco use; R63.4 Abnormal weight loss | CPT/HCPCS: 99213 ==